=== PATIENT | male | born 1970 | race Caucasian/White ===

== ENCOUNTER 2021-07-26 05:19 | Day surgery (SDC) | payer MEDICAID ==
[2021-07-21 16:07] LABS: BASOPHILS # (AUTO) 0.1 X10'3 (0-0.2); EOSINOPHILS # (AUTO) 0.2 X10'3 (0-0.9); EOSINOPHILS % (AUTO) 2.9 % (0-6); LYMPHOCYTES # (AUTO) 2.3 X10'3 (1.1-4.8); LYMPHOCYTES % (AUTO) 32.3 % (21-51); MEAN CORPUSCULAR HEMOGLOBIN 30.1 PG (27.0-31.0); MEAN CORPUSCULAR HGB CONC 34.6 g/dL (33.0-36.5); MEAN PLATELET VOLUME 7.2 FL (7.4-10.4); MONOCYTES # (AUTO) 0.7 X10'3 (0-0.9); MONOCYTES % (AUTO) 9.8 % (2-12); NEUTROPHILS # (AUTO) 3.8 X10'3 (1.8-7.7); PRE OP HEMATOCRIT 40.9 % (42.0-52.0); PRE OP HEMOGLOBIN 14.2 g/dL (14.0-17.9); PRE OP PLATELET COUNT 376 X10'3 (140-440); RED CELL DISTRIBUTION WIDTH 12.9 % (11.5-14.5)
[2021-07-21 16:16] LABS: ALBUMIN 3.9 G/DL (3.4-5.0); ALBUMIN/GLOBULIN RATIO 1.3 (1.1-1.5); ALKALINE PHOSPHATASE 122 IU/L (46-116); BLOOD UREA NITROGEN 15 MG/DL (7-18); BUN/CREATININE RATIO 15.5 (5.4-32.0); CALCIUM 8.6 MG/DL (8.5-10.1); CHLORIDE 103 MMOL/L (99-107); CREATININE 0.97 MG/DL (0.60-1.10); PRE OP ALT 45 U/L (30-65); PRE OP ANION GAP 8 (8-16); PRE OP AST 22 U/L (10-37); PRE OP BILIRUB, TOTAL 0.3 MG/DL (0.0-1.0); PRE OP POTASSIUM 3.9 MMOL/L (3.4-5.1); PRE OP SODIUM 138 MMOL/L (135-145); TOTAL PROTEIN 6.8 G/DL (6.4-8.2); eGFR 81 ML/MIN
[2021-07-21 16:19] LABS: PRE OP GLUCOSE 186 MG/DL (70-104)
[~2021-07-26] VITALS: Ht 175.3 cm; Wt 84.7 kg
[2021-07-26] VITALS (8 sets, daily range): BP systolic 94–129; BP diastolic 59–78
[~2021-07-26 05:19] MED LIST: ATOR10TA70 PO; CLON0.3T PO; LISI1TAB53 PO; LORA10TA7 PO; METH-797 PO; METH36TA22 PO; ringers solution, lacted 1,000 ML IV SCH
[2021-07-26] MEDS ORDERED: ceFAZolin 2gm in dextrose, iso 50 ML IV ONE (05:30)
[2021-07-26] MEDS ORDERED: famotidine 20mg tablet PO ONE (05:30)
[2021-07-26] MEDS ORDERED: BUPIVAcaine/PF 2.5 mg/ml (0.25%) 30ml vial ONE (06:48)
[2021-07-26] MEDS ORDERED: LIDOcaine 1% 30ml preserv. free vial ONE (06:48)
[2021-07-26] MEDS ORDERED: fentaNYL/PF 50MCG/1 ML 2ML syringe IV PRN ×2 (07:15)
[2021-07-26] MEDS ORDERED: ondansetron/PF 4mg/2ml inj IV PRN (07:15)
[2021-07-26] MEDS ORDERED: labetalol 20mg/4ml (5mg/ml) syringe IV PRN (07:15)
[2021-07-26] MEDS ORDERED: hydrALAZINE 20mg/ml inj. IV PRN (07:15)
[2021-07-26] MEDS ORDERED: ringers solution, lacted 1,000 ML IV SCH (07:15)
[2021-07-26] MEDS ORDERED: morphine 2 MG/ML inj. syringe IV PRN (07:15)
[2021-07-26] MEDS ORDERED: morphine 4 MG/ML inj SYRINge IV PRN (07:15)
[2021-07-26] MEDS ORDERED: MIDAZolam 1mg/ml 10ml vial ONE (07:49)
[2021-07-26] MEDS ORDERED: fentaNYL/PF 50MCG/1 ML 2ML syringe ONE (07:50)
[2021-07-26] MEDS ORDERED: propofol inj 20 ML IV ONE (07:51)
[2021-07-26] MEDS ORDERED: LIDOcaine 2% (20mg/ml) 5ml vial ONE (07:51)
--- NOTE | 2021-07-26 08:31 | NUR ---
Received from OR via [facility] IN STABLE CONDITION , accompanied by Anesthesiologist and DIRECTOR EXTERNAL COMMUNICATIONS report given by DIRECTOR EXTERNAL COMMUNICATIONS AND Anesthesiolgist. Addendum: 07/26/21 at 0852 by Connie Brito RN Amended: Links added.
[2021-07-26] MEDS ORDERED: HYDROcodone/acetaminophen 5mg/325mg tablet PO PRN (08:35)
--- NOTE | 2021-07-26 09:51 | NUR ---
PATIENT DISCHARGED FROM PACU IN STABLE CONDITION AFTER WRITTEN AND VERBAL DISCHARGE INSTRUCTIONS GIVEN. PATIENT GAVE VERBAL UNDERSTANDING OF INSTRUCTIONS GIVEN. PATIENT LEFT FACILITY VIA WHEELCHAIR WITH RN. Addendum: 07/26/21 at 1040 by Connie Brito RN Amended: Links added.
== END 2021-07-26 09:51 | disposition home or self-care (01) ==
LOC: PAS 05:19
PROVIDERS: ATTEND Surgery
DX: R22.2 Localized swelling, mass and lump, trunk (principal); D17.1 Benign lipomatous neoplasm of skin and subcutaneous tissue of trunk; I10 Essential (primary) hypertension; E78.5 Hyperlipidemia, unspecified; F41.9 Anxiety disorder, unspecified; F32.9 Major depressive disorder, single episode, unspecified; F90.9 Attention-deficit hyperactivity disorder, unspecified type; Z79.899 Other long term (current) drug therapy; Z98.890 Other specified postprocedural states; Z87.891 Personal history of nicotine dependence; Z20.822 Contact with and (suspected) exposure to COVID-19
CPT/HCPCS: 21554; 36415; 80053; 82948; 85025; 93005; 93306; J2001; J2250; J2704; J3010; J3490; U0003; U0005; Z7506; Z7512; A4215; A4618; A7000; J7120

== ENCOUNTER 2025-05-10 20:30 | Inpatient (IN) | payer MEDICAID ==
[~2025-05-10] VITALS: Ht 175.3 cm; Wt 80.0 kg
[~2025-05-10 20:30] MED LIST changes: +METH36TA14 PO; -METH36TA22 PO; -ringers solution, lacted 1,000 ML IV SCH
--- NOTE | 2025-05-10 20:40 | ELECTROCARDIOGRAPH REPORT ---
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 Amando Alegria Measurements Intervals [place] Rate: 81 P: 69 DE: 176 QRS: 52 QRSD: 126 T: -85 QT: 410 QTc: 476 Interpretive Statements Sinus rhythm Probable left atrial enlargement Left bundle branch block Baseline wander in lead(s) I,II,aVR Electronically Signed On 05-13-2025 3:07:[address] Amando Alegria Please click the below link to view image of tracing.
[2025-05-10 20:56] LABS: MEAN PLATELET VOLUME 7.0 FL (7.4-10.4); RED CELL DISTRIBUTION WIDTH 13.2 % (11.5-14.5)
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
[2025-05-10 21:08] LABS: APTT 25 SECONDS (22-32); INR 1.1 INR
[2025-05-10 21:16] LABS: CREATININE 1.37 MG/DL (0.60-1.10); TOTAL CARBON DIOXIDE 22.3 MMOL/L (24-32); eCRCL 61 ML/MIN; eGFR 54 ML/MIN
[2025-05-10 21:20] LABS: PHOSPHORUS 3.7 MG/DL (2.3-4.5); PRO BRAIN NATRIURETIC PEPTIDE 413 PG/ML (0-125)
--- NOTE | 2025-05-10 22:08 | RADIOLOGY REPORT ---
CT CT HEAD INDICATION: aloc COMPARISON: None TECHNIQUE: CT of the head without intravenous contrast. RADIATION DOSE: CTDIvol: mGy, DLP: mGy*cm FINDINGS: No evidence of intracranial hemorrhage, infarct, extra-axial collection, mass effect, midline shift or herniation. Ventricles, sulci and cisterns are normal with no hydrocephalus. Visualized paranasal sinuses, mastoid air cells and middle ear cavities are clear. Orbits appear unre markable. Soft tissues and osseous structures are unremarkable. IMPRESSION: No intracranial abnormality identified.
[2025-05-10] MEDS ORDERED: iohexol 300mg/ml 100ml inj. ONE (22:09)
[2025-05-10 22:14] LABS: LEUKOCYTE ESTERASE ,URINE TRACE (Neg); NITRITES, URINE NEGATIVE (Neg); OCCULT BLOOD,URINE LARGE (Neg)
[2025-05-10 22:15] LABS: UA COLLECTION TYPE FOLEY CATH
[2025-05-10 22:26] LABS: SQUAMOUS EPITHELIAL CELL,UR FEW /LPF (FEW)
[2025-05-10] MEDS: magnesium sulf-water 2g/50mL 50 ML IV ONE (22:54)
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
[2025-05-10] MEDS: CefTRIAXone 2gm/D5W 50ml BAG 50 ML IV ONE (23:40)
[2025-05-11] VITALS (8 sets, daily range): BP systolic 144–180; BP diastolic 76–89; PULSE 83–121; RESP 18–30; TEMP 97.2–100.5; O2SAT 94–100
[2025-05-11] MEDS: vancomycin/NS 1 GM ADD-VANTAGE 250 ML IV ONE (00:11)
[2025-05-11] MEDS ORDERED: ondansetron/PF 4mg/2ml inj IV PRN (01:35)
[2025-05-11] MEDS ORDERED: magnesium Cl slow-release 64mg tablet PO PRN (01:35)
[2025-05-11] MEDS ORDERED: magnesium sulf-water 2g/50mL 50 ML IV PRN (01:35)
[2025-05-11] MEDS ORDERED: magnesium sulf-water 4G/100mL 100 ML IV PRN (01:35)
[2025-05-11] MEDS ORDERED: potassium Cl 20 mEq SR tablet PO PRN ×2 (01:35)
[2025-05-11] MEDS ORDERED: mag hydrox/Alum hydrox/simeth 30ml oral suspension PO PRN (01:35)
[2025-05-11] MEDS ORDERED: haloperidol lactate 5mg/ml inj IM PRN (01:35)
[2025-05-11] MEDS: haloperidol lactate 5mg/ml inj ONE (01:51)
--- NOTE | 2025-05-11 02:13 | HISTORY AND PHYSICAL-Residence ---
History & Physical Providers to CC Resident Creating Document: RUSSELL JAMES, RES ~ History of Present Illness Reason for Admit\Complaint: Rhabdomyolysis, ETOH abuse History of Present Illness 54-year-old male is transferred from [facility] for evaluation and further management of severe alcohol abuse and rhabdomyolysis. The patient is altered, confused and significantly agitated waking up to deep stimulation and is not able to provide history. The patient's friends (Rei Jayshree) are at the bedside and provided most of the patient's history. Per the patient's friends the patient was found unresponsive in his room early in the morning when they went to check on him. They reported that the patient was drinking very very heavily and cause on binge drinking episodes since the last 5-6 days and are not sure what triggered this binge drinking episode. They reported that the last saw the friend talking and being himself was the night prior to which he was found unresponsive and reported that he was intoxicated but was able to recognize his friends. Per the friend's the patient does not drink alcohol every day but has a episodes where he binge drinks and had to be taken to the hospital in the past. They also report that he has a history of drinking isopropyl alcohol in the past and are not sure if he also consumed isopropyl alcohol during this binge drinking episode. The patient was initially taken to [facility] where he was found to [place] [address], hyponatremia with a sodium of 120 and significantly elevated LFTs. He was treated with aggressive fluid hydration and was transferred to our hospital for further care and management in view of is severe rhabdomyolysis and severe alcohol withdrawals. PCP- Dr. Joya Allergies: Coded Allergies: No Known Allergies (Unverified , 07/21/21) Home Medications Home Medications Active Reported Loratadine 10 Mg Tablet 1 Tab PO DAILY Atorvastatin Calcium 10 Mg Tablet 1 Tab PO DAILY Methylphenidate Hcl 36 Mg Tab.er.24 1 Tab PO QAM Clonidine HCl 0.3 Mg Tablet 1 Tab PO HS Lisinopril-Hctz 20-25 mg Tab (Lisinopril/Hydrochlorothiazide) 1 Each Tablet 1 Tab PO DAILY Methocarbamol 500 Mg Tablet 1 Tab PO TID PRN Past Medical History Past Medical History Hypotension, hyperlipidemia, multiple episodes of binge alcohol drinking alcohol abuse. Friends deny history of alcohol withdrawals or daily alcohol use. Past Surgical History Surgical History Comment Right shoulder surgery reported Past Social History Social History Comment Lives at shared living facility along with his friends. 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 Shilpa naranjo [phone] Friends deny history of smoking or recreational drug use History of multiple alcohol binge drinking episodes ROS ROS Not able to complete a review of system Exam Vitals: Vital Signs Date Time Temp Pulse Resp B/P (MAP) Pulse Ox O2 Delivery O2 Flow Rate FiO2 05/10/25 23:51 17 05/10/25 23:26 99.2 90 97 2.0 General: General: Agitated, confused and altered . Waking up to command. HEENT: PERRLA, no icterus Neck: No swelling or lymphadenopathy Chest/respiratory: There is a abrasion noted with a chest Bilateral clear airways CVS: S1-S2 heard no murmurs or rubs. Abdomen: Soft nontender , bowel sounds present Extremities: Multiple hematomas, patient's noted throughout the four extremities. Skin: Warm and dry Neurology: Confused, agitated and combative would also falls back asleep soon. Diagnostic Data Last Recorded Lab Results: 05/10/25204605/10/252046 Diagnostic Data: Laboratory Tests Test 05/10/25 20:47 Prothrombin Time 11.1 SECONDS (9.0-12.0) INR International Normalized Ratio 1.1 INR Activated Partial Thromboplast Time 25 SECONDS (22-32) Coagulation Comments Additional Plan Binge alcohol abuse Alcoholic hepatitis Metabolic encephalopathy Delirium tremens Rhabdomyolysis Patient is transferred from [facility] in view of severe alcohol abuse, alcohol withdrawal and rhabdomyolysis. The patient received aggressive IV fluid resuscitation at [facility] prior to his transfer. The [place]ing [place] is currently [id number]. Held IV NaCl in view of the patient's rapidly corrected sodium level. It has a 120 at the time of admission at [place] and it is 131 right now. Plan to restart fluid resuscitation once the sodium stabilizes. Continue to monitor the patient's CPK. Patient received one dose of IV phenobarbital in the ER in view of severe alcohol withdrawal. Started the patient on IV Ativan as needed for severe agitation/anxiety based on CIWA protocol. Started the patient on IV thiamine and folic acid supplementation. Continue supportive care. The patient had to be put in restraints in view of his severe agitation. Aspiration precautions Substance abuse navigator and social media project manager consultation. There is also suspicion the patient might have taken isopropyl alcohol as he has a history of drinking acetaminophen alcohol in the past reported by his parents. We will consult poison control. Telemetry monitoring. CT scan of the abdomen chest and pelvis show no intra-abdominal or acute intrathoracic injury at this time. CT scan of the head showed no acute intracranial abnormalities. Sepsis, POA UTI Urine analysis positive for leukocyte esterase, 5-10 WBCs, bacteria. Started the patient on IV ceftriaxone 1 g daily Follow up with procalcitonin Follow up with the urine culture and blood cultures and change the antibiotic accordingly. Hyponatremia The patient's initial sodium level was 120 at the time of presentation to [facility]. He received aggressive IV fluid resuscitation. The sodium level has a raised to 131 currently. IV fluids are currently on hold. We will give him one dose of subcu desmopressin. Continue to monitor the patient's electrolytes closely. CODE STATUS: Full code DVT prophylaxis: SCDs GI prophylaxis: IV Protonix Diet: NPO Disposition: Continue medical management. Prognosis guarded. Follow up with the substance abuse navigator consultation and social media project manager consultation. Requires close monitoring for the next 24-48 hours. Russell James MD Internal Medicine Resident, PGY-3 Patient evaluated using HIPPA compliant AV device Agree with plan as discussed with the resident Cj Michaels MD Date of Service: May 11, 2025 Billing Provider: CJ MICHAELS MD, SURYA PRATIK, GAB May 11, 2025 02:13 CJ MICHAELS MD May 11, 2025 04:18
[2025-05-11] MEDS: DESMOPRESSIN ONE (03:58)
[2025-05-11 07:52] LABS: MEAN PLATELET VOLUME 7.2 FL (7.4-10.4); RED CELL DISTRIBUTION WIDTH 13.4 % (11.5-14.5)
[2025-05-11 07:59] LABS: CREATININE 1.29 MG/DL (0.60-1.10); TOTAL CARBON DIOXIDE 19.3 MMOL/L (24-32); eCRCL 65 ML/MIN; eGFR 58 ML/MIN
[2025-05-11] MEDS: K and/or MAG REPLACEMENT MC SCH (08:00)
[2025-05-11] MEDS: multivitamins, therapeutics tablet PO SCH (08:00)
[2025-05-11] MEDS: docusate sod 100mg capsule PO SCH (08:00)
[2025-05-11] MEDS: thiamine 100mg/ml 2ml inj. IV SCH (08:47)
[2025-05-11] MEDS: folic acid 1mg/0.2ml inj IV SCH (08:48)
[2025-05-11] MEDS: CefTRIAXone/D5W-Rocephin 1gm 50 ML IV SCH (08:48)
[2025-05-11 12:40] LABS: CREATININE 1.04 MG/DL (0.60-1.10); TOTAL CARBON DIOXIDE 19.9 MMOL/L (24-32); eCRCL 80 ML/MIN; eGFR 74 ML/MIN
[2025-05-11] MEDS: haloperidol lactate 5mg/ml inj IM PRN (13:07)
[2025-05-11] MEDS: ziprasidone IM 20mg inj **IM only IM ONE (13:59)
--- NOTE | 2025-05-11 16:37 | PROGRESS NOTE- Residence ---
Progress Note - Resident Providers to CC Resident Creating Document: RG FLOWERS RES ~ Antibiotic Timeout Antibiotic Ordered?: Yes Subjective The patient was assessed and examined at the bedside, showing drowsiness. Friends present at the bedside reported that he has been drinking heavily for the last few days. He was discovered unconscious amid several whiskey bottles. The patient has numerous bruises, lacerations and various injuries across his body; however his friends were unaware of how these injuries occurred. Objective Vital Signs Date Time Temp Pulse Resp B/P (MAP) Pulse Ox O2 Delivery O2 Flow Rate FiO2 05/11/25 11:52 99.1 90 22 180/86 (117) 94 Room Air 05/11/25 07:21 2.0 Result Diagram: 05/11/2528 05/11/25 1218 Drowsy, agitative and combative, in apparent distress HEENT: Atraumatic, normocephalic, EOMI, anicteric sclera ; pink conjunctiva Neck: Trachea midline. Supple, full range of motion, no JVD Cardiac: Regular rhythm, regular rate with no murmurs all over the precordium. Respiratory: Diminished breath sounds bilaterally, tachypnea, no wheezing ,rub or rales, Chest wall is symmetric and with multiple do a. Gastrointestinal: Abdomen symmetric, non-distended, soft, normal bowel sounds x4 quadrant, normoactive, no hepatosplenomegaly Musculoskeletal: Left lower extremity: A laceration of the brace of the left greater toe with extension into the wound underneath Several bruit all over the body with significant discoloration Neurological: Could not be performed Skin: Warm and dry Coagulation Studies Laboratory Tests Test 05/10/25 20:47 Prothrombin Time 11.1 SECONDS (9.0-12.0) INR International Normalized Ratio 1.1 INR Activated Partial Thromboplast Time 25 SECONDS (22-32) Coagulation Comments Advance Care Planning Advanced Care plannin - 30 Minutes Plan Plan 1) Severe Alcohol Withdrawal high risk for delirium tremens / seizures Binge alcohol use Altered, severely agitated; already given phenobarbital and PRN lorazepam. Restraints and sitter in place. Plan: Head CT No intracranial abnormality identified. Continue CIWA monitoring q12h and prn; restraints per policy. Continue symptom triggered benzodiazepine strategy (lorazepam 2 mg IV q2h PRN per CIWA). Continue haloperidol 5 mg q.2h; Geodon on 10 mg q.6 H; monitor QTC prolongation Phenobarbital: ER dose given We will consult ICU for probable need of intubation if progressively somnolent, loss of airway reflexes, or respiratory depression from sedatives Thiamine 100 mg IV STAT then 100 mg IV daily x 3. Folic acid 1 mg IV daily Follow up with the echocardiogram 2) Rhabdomyolysis (CPK 23,704 and downtrending) Severe rhabdo from prolonged intoxication/immobility; CPK improving but still very high. Risk for SUSIE, electrolyte derangements. Plan Resume isotonic IV fluids (0.9% NS) once sodium is stable Check CK q12h until falling and <5,000 Check urine output hourly; mona for accurate UOP Monitor for hyperkalemia, hypocalcemia, hyperphosphatemia Currently there is no need for urine alkalinization (bicarb) as his SUSIE is resolving 3) Hyponatremia concern for overly rapid correction Na 120 on presentation; after aggressive fluids it aniya to ~131 (fluctuations reported). Repeat sodium levels 134 Plan: Place all IV hypotonic / isotonic fluids on HOLD for now Check serum sodium q4h until stable Patient received a dose of desmopressin 1 mcg SC Initiated free water (D5W) infusion Frequent neuro checks q1h while sodium is being actively managed 4) Possible toxic alcohol / isopropyl alcohol ingestion Friends report prior history of drinking isopropyl/alcohol swabs Plan Poison Control was consulted; recommended monitoring for now Serum ethanol levels, UA toxicology, ethylene glycol levels ordered 5) Possible UTI / sepsis POA UA positive; patient empirically started on ceftriaxone 1 g IV daily. Vitals and cultures pending Plan: Blood cultures x2 and urine culture; pending Initiated cefazolin 1 g q.8h Procalcitonin: 11.24; lactic acid within normal limits Probable source of infection: Open wounds of the left great toe/ UTI 6) Left great toe deep laceration Deep laceration noted on exam; Concern for contamination and possible osteomyelitis if chronic. Plan Podiatry consulted STAT for exam, bedside irrigation/debridement vs OR washout. Foot x-ray ordered to rule out bony involvement Tetanus status; tetanus booster if indicated after patient is stable Continue current antibiotic cefazolin, we will adjust antibiotics based on cultures tomorrow 7) Alcoholic hepatitis / hepatic dysfunction Elevated LFTs reported; alcoholic hepatitis possible Plan LFTs on admission: AST: 1416 trended down to 928; ALT: [address] scan showed: No evidence of acute intrathoracic or intra- abdominal/pelvic injury Avoid hepatotoxic meds; adjust doses as needed 8. Acute kidney injury, prerenal (vasomotor nephropathy): Resolved DVT prophylaxis: SCDs in place now GI prophylaxis: pantoprazole 40 mg IV daily Sitter/restraints: continue sitter NPO/aspiration precautions until swallow evaluation if oral intake considered. Continue telemetry & frequent neuro checks. Rg Flowers MD Internal Medicine Resident, PGY-2 Date of Service: May 11, 2025 Billing Provider: TEMO MACARIO MD,RG, RES May 11, 2025 16:37
[2025-05-11] MEDS: PERFLUTREN PROTEIN-A MICROSPHR (Optison) 0.22 MG/ML 3ML VIAL IV ONE (16:55)
[2025-05-11 17:29] LABS: URINE AMPHETAMINE SCREEN NEGATIVE (Neg); URINE BARBITUATE SCREEN POSITIVE (Neg); URINE BENZODIAZEPINES SCREEN NEGATIVE (Neg); URINE CANNABINOID SCREEN POSITIVE (Neg); URINE COCAINE SCREEN NEGATIVE (Neg); URINE METHADONE SCREEN NEGATIVE (Neg); URINE OPIATE SCREEN POSITIVE (Neg); URINE PHENCYCLIDINE SCREEN NEGATIVE (Neg)
[2025-05-11 18:36] LABS: CREATININE 1.05 MG/DL (0.60-1.10); TOTAL CARBON DIOXIDE 22.9 MMOL/L (24-32); eCRCL 79 ML/MIN; eGFR 73 ML/MIN
[2025-05-11 18:44] LABS: ETHANOL < 10 MG/DL (<10)
[2025-05-11] MEDS: ceFAZolin/D5W- 1GM premix 50 ML IV SCH (20:15)
--- NOTE | 2025-05-12 00:47 | RADIOLOGY REPORT ---
CLINICAL INDICATION: Left greater toe injury TECHNIQUE: DI FOOT,LIMITED (AP/LAT) Comparison: None FINDINGS/IMPRESSION: : There is no evidence of acute fracture or dislocation. Probable Chronic sequelae of remote trauma inferiorly adjacent to the medial malleolus. Degenerative change of the 5th distal interphalangeal joint. Moderate diffuse soft tissue swelling of the 1st digit.
[2025-05-12 02:00] VITALS: BP 152/87; PULSE 103; RESP 20; TEMP 99.3; O2SAT 96
[2025-05-12 06:00] VITALS: BP 145/94; PULSE 117; RESP 20; TEMP 99.5; O2SAT 94
--- NOTE | 2025-05-12 06:23 | CONSULTATION REPORT ---
Consult Providers to CC Left hallux laceration History of Present Illness Reason for Admit\Complaint: Alcohol overdose History of Present Illness Rei Snow is a 54yo Male admitted for alcohol overdose after being found down in his home by friends surrounded by whiskey bottles. He is currently sedated in restraints in bed so no subjective was obtained. His RN yesterday was doing a skin check and found a laceration on his plantar left hallux that extended to bone, so I was consulted for eval. Allergies: Coded Allergies: No Known Allergies (Unverified , 07/21/21) Home Medications Home Medications Active Reported Loratadine 10 Mg Tablet 1 Tab PO DAILY Atorvastatin Calcium 10 Mg Tablet 1 Tab PO DAILY Methylphenidate Hcl 36 Mg Tab.er.24 1 Tab PO QAM Clonidine HCl 0.3 Mg Tablet 1 Tab PO HS Lisinopril-Hctz 20-25 mg Tab (Lisinopril/Hydrochlorothiazide) 1 Each Tablet 1 Tab PO DAILY Methocarbamol 500 Mg Tablet 1 Tab PO TID PRN Exam Vitals: Vital Signs Date Time Temp Pulse Resp B/P (MAP) Pulse Ox O2 Delivery O2 Flow Rate FiO2 05/12/25 02:00 99.3 103 20 152/87 (108) 96 Nasal Cannula 2.0 Extremities: Focused LLE exam: Vasc: DP/PT pulses palpable. Cap refill WNL. No varicosities. Derm: Full thickness laceration plantar left hallux base transversely that extends to bone, no palpable FHL tendon with probe, there is surrounding erythema, edema and warmth to the hallux Neuro: Unable to fully examine do to sedated state, did not respond to superficial stimuli but responded to deep stimuli Msk: no gross deformity to left hallux, appeared to have pain with deep probing of wound Diagnostic Data Last Recorded Lab Results: 05/11/25 0728 05/11/25 5118 Diagnostic Data: Laboratory Tests Test 05/10/25 20:47 Prothrombin Time 11.1 SECONDS (9.0-12.0) INR International Normalized Ratio 1.1 INR Activated Partial Thromboplast Time 25 SECONDS (22-32) Coagulation Comments Additional Plan Left hallux laceration, extending to bone with surrounding cellulitis -Given we do not know timeline of injury, given the laceration extends to bone with surrounding cellulitis, recommend operative intervention: Left hallux irrigation and debridement with possible closure, possible bone biopsy, possible FHL repair, possible staged procedure -Recommend stat MRI of left foot with/wo contrast to eval for any early osteomyelitis and possible FHL rupture -No fracture seen on xray -Continue NPO -Continue dressing with betadine wet to dry, makayla, tape -Will work on surgery scheduling -Please reach out with any questions or concerns Ale Villatoro DPM ALE VILLATORO DPM May 12, 2025 06:23
[2025-05-12 07:07] LABS: MEAN PLATELET VOLUME 7.5 FL (7.4-10.4); RED CELL DISTRIBUTION WIDTH 12.9 % (11.5-14.5)
[2025-05-12 07:21] LABS: INR 1.0 INR
[2025-05-12 07:35] LABS: CREATININE 0.97 MG/DL (0.60-1.10); TOTAL CARBON DIOXIDE 22.7 MMOL/L (24-32); eCRCL 86 ML/MIN; eGFR 80 ML/MIN
[2025-05-12 07:38] LABS: PHOSPHORUS 1.6 MG/DL (2.3-4.5)
[2025-05-12 09:00] VITALS: RESP 20; O2SAT 94
[2025-05-12] MEDS: ziprasidone IM 20mg inj **IM only IM PRN (10:56)
[2025-05-12 11:00] VITALS: BP 166/83; PULSE 103; RESP 21; TEMP 97.5; O2SAT 96
[2025-05-12 12:20] LABS: CREATININE 0.91 MG/DL (0.60-1.10); TOTAL CARBON DIOXIDE 21.8 MMOL/L (24-32); eCRCL 92 ML/MIN; eGFR 86 ML/MIN
[2025-05-12] MEDS: potassium Cl 40MEQ/1/2NS 520ml 520 ML IV PRN (14:04)
[2025-05-12 18:00] VITALS: BP 189/110; PULSE 105; RESP 19; TEMP 99.1; O2SAT 96
[2025-05-12] MEDS: PERFLUTREN PROTEIN-A MICROSPHR (Optison) 0.22 MG/ML 3ML VIAL IV ONE (18:35)
--- NOTE | 2025-05-12 19:08 | PROGRESS NOTE- Residence ---
Progress Note - Resident Providers to CC Resident Creating Document: RG FLOWERS RES ~ Antibiotic Timeout Antibiotic Ordered?: Yes Subjective The patient was assessed and examined at the bedside, showing drowsiness. He has been combative until 3:00 a.m. yesterday. However, he has been drowsy and calm all through today Objective Vital Signs Date Time Temp Pulse Resp B/P (MAP) Pulse Ox O2 Delivery O2 Flow Rate FiO2 05/12/25 13:51 26 05/12/25 11:00 97.5 103 166/83 (110) 96 Room Air 05/12/25 09:00 2.0 Result Diagram: 05/12/25 0631 05/12/25 1159 Drowsy, agitative and combative, in apparent distress HEENT: Atraumatic, normocephalic, EOMI, anicteric sclera ; pink conjunctiva Neck: Trachea midline. Supple, full range of motion, no JVD Cardiac: Regular rhythm, regular rate with no murmurs all over the precordium. Respiratory: Diminished breath sounds bilaterally, tachypnea, no wheezing ,rub or rales, Chest wall is symmetric and with multiple do a. Gastrointestinal: Abdomen symmetric, non-distended, soft, normal bowel sounds x4 quadrant, normoactive, no hepatosplenomegaly Musculoskeletal: Left lower extremity: Dressing in place Several bruit all over the body with significant discoloration Neurological: Could not be performed Skin: Warm and dry Coagulation Studies Laboratory Tests Test 05/10/25 20:47 05/12/25 06:31 Activated Partial Thromboplast Time 25 SECONDS (22-32) Prothrombin Time 10.1 SECONDS (9.0-12.0) INR International Normalized Ratio 1.0 INR Coagulation Comments Advance Care Planning Advanced Care plannin - 30 Minutes Plan Plan 1) Severe Alcohol Withdrawal high risk for delirium tremens / seizures Binge alcohol use Altered, severely agitated; already given phenobarbital and PRN lorazepam. Restraints and sitter in place. Plan: Head CT No intracranial abnormality identified. Continue CIWA monitoring q12h and prn; restraints per policy. Continue symptom triggered benzodiazepine strategy (lorazepam 2 mg IV q2h PRN per CIWA). Continue haloperidol 5 mg q.2h; Geodon on 10 mg q.6 H; monitor QTC prolongation Phenobarbital: ER dose given We will consult ICU for probable need of intubation if progressively somnolent, loss of airway reflexes, or respiratory depression from sedatives Thiamine 100 mg IV STAT then 100 mg IV daily x 3. Folic acid 1 mg IV daily Follow up with the echocardiogram 05/12/2025: Patient had a sudden rise in liver enzymes, hence held haloperidol 5 mg q.2h Recommended to continue Geodon 10 mg q.6 H; patient was combative and agitated until 3:00 a.m this day. He has been calm all through today, hence recommended to continue Geodon q.6 H and Ativan 2 mg IV p.r.n. We will consider consulting Dr. Thompson, customs house broker if there is any further decline or increased combativeness over time There are high chances he might end up requiring intubation/ phenobarbital along with transferred to ICU Follow up with the echocardiogram, pending Continue thiamine, folic acid as above 2) Rhabdomyolysis (CPK 23,704 on admission and downtrending) Severe rhabdo from prolonged intoxication/immobility; CPK improving but still very high. Risk for SUSIE, electrolyte derangements. Plan Resume isotonic IV fluids (0.9% NS) once sodium is stable Check CK q12h until falling and <5,000 Check urine output hourly; mona for accurate UOP Monitor for hyperkalemia, hypocalcemia, hyperphosphatemia Currently there is no need for urine alkalinization (bicarb) as his SUSIE is resolving 05/12/2025[place] [address] today, recently repeat CPK tomorrow in a.m. Electrolyte levels: Stable Initiated D5 half NS at 150 cc/hour today 3) Hyponatremia concern for overly rapid correction Na 120 on presentation; after aggressive fluids it aniya to ~131 (fluctuations reported). Repeat sodium levels 134 Plan: Place all IV hypotonic / isotonic fluids on HOLD for now Check serum sodium q4h until stable Patient received a dose of desmopressin 1 mcg SC Initiated free water (D5W) infusion Frequent neuro checks q1h while sodium is being actively managed 05/12/2025: Sodium levels: 134, 135, 135, 136 since yesterday Unable to assess mentation currently, as patient is receiving hypnotics Initiated D5 half NS had 150 cc/hour Frequent neuro checks q.1h if possible 4) Possible toxic alcohol / isopropyl alcohol ingestion Friends report prior history of drinking isopropyl/alcohol swabs Plan Poison Control was consulted; recommended monitoring for now Serum ethanol levels, UA toxicology, ethylene glycol levels ordered 05/12/2025: Serum ethanol levels: Less than 10 UA toxicology: Positive for opiates, cannabinoids, barbiturates Pending ethanol glycol level 5) Possible UTI / sepsis POA UA positive; patient empirically started on ceftriaxone 1 g IV daily. Vitals and cultures pending Plan: Blood cultures x2 and urine culture; pending Initiated cefazolin 1 g q.8h Procalcitonin: 11.24; lactic acid within normal limits Probable source of infection: Open wounds of the left great toe/ UTI 05/12/2025: WBC count trended down to 11.2 from 17.4 and 14.6 Blood cultures and urine cultures negative until today Initiated ceftriaxone 1 g IV daily today Repeat procalcitonin ordered 6) Laceration of the left hallux extending to the bone, accompanied by surrounding cellulitis Deep laceration noted on exam; Concern for contamination and possible osteomyelitis if chronic. Plan Podiatry consulted STAT for exam, bedside irrigation/debridement vs OR washout. Foot x-ray ordered to rule out bony involvement Tetanus status; tetanus booster if indicated after patient is stable Continue current antibiotic cefazolin, we will adjust antibiotics based on cultures tomorrow 05/12/2025: The administrative medical director has recommended an immediate MRI of the left foot, with or without contrast, to evaluate for any signs of early osteomyelitis and a potential rupture of the flexor hallucis longus (FHL). The X-ray of the left foot revealed: no indications of an acute fracture or dislocation. There are likely chronic sequelae from a previous trauma located inferiorly adjacent to the medial malleolus. Additionally, degenerative changes were noted in the fifth distal interphalangeal joint, along with moderate diffuse soft tissue swelling of the first digit. A laceration of the left hallux extends to the bone, accompanied by surrounding cellulitis. Due to the lack of precise historical information regarding the injury timeline and the presence of a laceration extending to the bone with surrounding cellulitis, the patient is expected to benefit from surgical intervention. This may include irrigation and debridement of the left hallux, with potential closure, a possible bone biopsy, a possible repair of the FHL, and the possibility of a staged procedure. The patient is to remain NPO after midnight. However, the patient was unable to undergo the MRI as he is currently restrained and is not a suitable candidate at this time. A discussion was held regarding the decision to not proceed with the MRI scan, and the administrative medical director has recommended moving forward with surgery tomorrow morning without the MRI for the time being. Due to unknown acute 8 history, timeline and extension to the underlying bone; initiated empiric antibiotics for now; transitioned cefazolin to ceftriaxone 1 g IV daily and vancomycin pharmacy to dose for now We shall deescalate antibiotics based on procedure tomorrow 7) Alcoholic hepatitis / hepatic dysfunction Transaminemia Elevated LFTs reported; alcoholic hepatitis possible Plan LFTs on admission: AST: 1416 trended down to 928; ALT: [address] scan showed: No evidence of acute intrathoracic or intra- abdominal/pelvic injury Avoid hepatotoxic meds; adjust doses as needed 05/12/2025: Sudden rise in LFTs: AST 2464, ALT 1054 Possible acute causes include: Extensive use of haloperidol over the past 24 hours; hence held haloperidol for now Awaiting hepatitis panel Patient had no evidence of any hypotensive episodes over the past 24 hours,hence likely not ischemic hepatopathy/ hepatitis Initiated maintenance fluids: D5 half NS at 150 cc/hour today Repeat ammonia levels ordered Ultrasound abdomen ordered 8. Acute kidney injury, prerenal (vasomotor nephropathy): Resolved 9. Hypokalemia: Potassium levels 3.3 today, continue monitoring CMP, replacement per protocol DVT prophylaxis: SCDs in place now GI prophylaxis: pantoprazole 40 mg IV daily Sitter/restraints: continue sitter NPO/aspiration precautions until swallow evaluation if oral intake considered. Continue telemetry & frequent neuro checks. Rg Flowers MD Internal Medicine Resident, PGY-2 Date of Service: May 12, 2025 Billing Provider: TEMO MACARIO MD Common Visit Codes: [id number] INP/OBS CARE(HIGH) RG FLOWERS, RES May 12, 2025 19:08 TEMO MACARIO MD May 13, 2025 06:50
[2025-05-12] MEDS: VANCOmycin 1250MG/NS 250ml Bag 250 ML IV SCH (20:00)
--- NOTE | 2025-05-12 20:18 | RADIOLOGY REPORT ---
CLINICAL HISTORY: Rise of liver enzymes TECHNIQUE: Transabdominal sonogram was performed of the right upper quadrant. COMPARISON: None FINDINGS: The liver is increased in echogenicity. There is no focal parenchymal abnormality. No intrahepatic b iliary ductal dilatation is present. The liver measures 16.1 cm. The gallbladder is normal with no evidence for stones or wall thickening. The common bile duct is normal in caliber, measuring 5 mm. The pancreas is not well seen. The right kidney is normal in echogenicity and measures 12.6 cm in length. There is a 2.1 cm cyst. Th ere is no evidence for hydronephrosis or calculi. IMPRESSION: Diffuse hepatic steatosis.
[2025-05-12] MEDS: CefTRIAXone/D5W-Rocephin 1gm 50 ML IV SCH (21:15)
[2025-05-12 21:44] LABS: CREATININE 0.99 MG/DL (0.60-1.10); TOTAL CARBON DIOXIDE 23.5 MMOL/L (24-32); eCRCL 84 ML/MIN; eGFR 78 ML/MIN
[2025-05-12 22:00] VITALS: BP 159/93; PULSE 105; RESP 29; TEMP 99.7; O2SAT 96
[2025-05-13] VITALS (14 sets, daily range): BP systolic 135–199; BP diastolic 71–118; PULSE 71–109; RESP 14–35; TEMP 97.5–99.8; O2SAT 92–100
[2025-05-13 06:27] LABS: MEAN PLATELET VOLUME 7.4 FL (7.4-10.4); RED CELL DISTRIBUTION WIDTH 13.0 % (11.5-14.5)
[2025-05-13 06:40] LABS: INR 1.0 INR
[2025-05-13 07:22] LABS: CREATININE 0.81 MG/DL (0.60-1.10); PHOSPHORUS 1.5 MG/DL (2.3-4.5); TOTAL CARBON DIOXIDE 22.3 MMOL/L (24-32); eCRCL 103 ML/MIN; eGFR > 90 ML/MIN
[2025-05-13 09:19] LABS: HBSAG SCREEN Negative (Negative); HEP A AB, IGM Negative (Negative); HEPATITIS C VIRUS ANTIBODY Non Reactive (Non Reactive)
[2025-05-13] MEDS: diazepam inj 5 MG/ML inj. IV PRN ×2 (12:26→20:22)
[2025-05-13] MEDS: hydrALAZINE 20mg/ml inj. IV PRN ×2 (12:28→17:45)
[2025-05-13] MEDS ORDERED: bacitracin 15gm ointment TP ONE (14:50)
[2025-05-13] MEDS ORDERED: vancomycin 1,000mg inj ONE (14:50)
[2025-05-13] MEDS ORDERED: LIDOcaine 1% (10mg/ml)w/preservative inj. 20ml MDV ONE (15:09)
[2025-05-13] MEDS ORDERED: BUPIVAcaine/PF 2.5mg/ml (0.25%) 10ml vial ONE (15:09)
[2025-05-13] MEDS ORDERED: fentaNYL/PF 50MCG/1 ML 2ML syringe ONE (16:05)
[2025-05-13] MEDS ORDERED: midazolam 1 mg/ML 2ml injection ONE (16:06)
[2025-05-13] MEDS ORDERED: propofol inj 0 ML IV ONE (16:29)
[2025-05-13] MEDS ORDERED: propofol inj 20 ML IV ONE (16:29)
[2025-05-13] MEDS ORDERED: HYDROmorphone/PF 0.2 MG/ML SYRINGE IV PRN ×2 (17:00)
[2025-05-13] MEDS ORDERED: ondansetron/PF 4mg/2ml inj IV PRN (17:00)
[2025-05-13] MEDS ORDERED: ringers solution, lacted 1,000 ML IV SCH (17:00)
--- NOTE | 2025-05-13 17:14 | OPERATIVE REPORT ---
Operative Report Providers to ~ Date of Procedure: May 13, 2025 Pre-Operative Diagnosis: Laceration plantar left hallux, left foot cellulitis Post-Operative Diagnosis SAME as PRE-Op Procedure Performed Left plantar hallux laceration irrigation and debridement, debridement of FHL tendon, bone biopsy, laceration repair Surgeon: Trell Villatoro DPM Gas Welder Apprentice n/a Anesthesiologist: Selvin Walker Type of Anesthesia: General Findings: No abscess or purulence. Partial laceration of the FHL tendon, frayed. Firm bone quality, white in coloration. No arterial bleeds noted. Healthy tissue with adequate bloodflow post-debridement. Complications none Prosthetics\\Implants used: none Estimated Blood Loss: 20cc Specimen Removed: 1) Left hallux soft tissue for A&A and gram stain 2) Left hallux bone biopsy for pathology Description of Procedure: Consent was obtained by the patient's mother due to his sedated state. Under mild sedation the patient was brought into the operating room and left on the hospital bed in the supine position. The anesthesia provider then induced general anesthesia with LMA. A well padded left ankle tourniquet was applied but not inflated during the case. The left lower extremity was then scrubbed, prepped and draped in the usual aseptic manner. A timeout was performed confirming the correct patient, procedure and laterality. A local block of 20cc 0.25% marcaine plain was injected to the left first ray. Attention was then directed to the plantar left hallux where a full thickness transverse laceration was noted and extended to the proximal phalanx. All non- viable tissue was debrided with a rongeur. Swab cultures of the left hallux were taken to be sent for A&A and gram stain. The FHL tendon was evaluated and noted to be partial torn with fraying to the torn aspect. This was non-repairable and debrided with a #15 blade. The remaining tendon appeared healthy and viable and was left intact. A rongeur was used to take a sample of the proximal phalanx to rule out osteomyelitis given the extended length of time the laceration was there prior to repair given the patient's medical state. This was passed to the back table to be sent to pathology. The wound was irrigated with 3L normal saline with 1gm vancomycin using cysto tubing. Gloves were changed and only clean instruments were used moving forward. The skin edges were freshened for closure using a #15 blade. Any small bleeders were cauterized with electrocautery. The incision was closed using 2-0 and 3-0 nylon suture in a combination of vertical mattress, horizontal mattress and simple interrupted fashion. The incision was dressed with betadine soaked adaptic, 4x4 gauze, webril and 4" cuco wrap. RECOMMENDATIONS: -Continue IV abx while inpatient, discharge on 7 days culture directed oral antibiotics -F/u pathology, do not suspect osteomyelitis but if it is noted, recommend ID consult for abx -Keep dressing clean dry and intact, can be changed POD#2 with betadine soaked adaptic or xeroform, 4x4 gauze, kerlix and 4" cuco wrap, he can keep this dressing c/d/i until follow-up with me. -Heel WBAT in post op shoe only to limit flexion/extension of the hallux -Elevate LLE above level of heart at all times at rest -I will schedule patient follow-up in my clinic pending his discharge date Please reach out with any updates, questions or concerns. Trell Villatoro DPM Counts repoted as correct: Yes TRELL VILLATORO DPM May 13, 2025 17:14
[2025-05-13] MEDS: labetalol 20mg/4ml (5mg/ml) syringe IV PRN (17:29)
--- NOTE | 2025-05-13 18:11 | RADIOLOGY REPORT ---
Indication: LEFT FOOT XRAY POST OP Technique: DI FOOT,LIMITED (AP/LAT)FOOT LTD Comparison: None FINDINGS/IMPRESSION: There is a fracture of the 1st proximal phalanx. Surrounding soft tissue edema.
[2025-05-13] MEDS: morphine 4 MG/ML inj SYRINge IV PRN (18:23)
--- NOTE | 2025-05-13 19:16 | CARDIOLOGY REPORT ---
APPROVED REPORT EXAM: Comprehensive 2D, Doppler, and color-flow Echocardiogram. 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 180.6 cm/s AoV VTI 27.6 cm AO Peak GR. 13.0 mmHg AO Mean GR. 7 mmHg LVOT VTI 20.43 cm LVOT Peak Erwin. 122.8 cm/s MARQUITA(VTI)/BSA 2.11 cm2/m2 MARQUITA (VTI) 2.11 cm2 Mitral Valve MV E Velocity 99.9 cm/s MV DECEL TIME 80 ms MV A Velocity 134.0 cm/s E/A Ratio 0.7 TDI Lateral E' P. V8.87 cm/s Medial E' P. V 11.05 cm/s E/Lateral E' 11.3 E/Medial E' 9.0 Tricuspid Valve TR P. Velocity 214 cm/s RAP ESTIMATE 10 mmHg TR Peak Gr. 18 mmHg RVSP 28 mmHg LEFT VENTRICLE Normal LV size and function. Mild to moderate concentric hypertrophy. Overall LVEF is 65-70%. RIGHT VENTRICLE RV is normal size and function. ATRIA The left atrium size is normal. AORTIC VALVE Trileaflet AV appears mildly sclerotic without stenosis. Trivial insufficiency. MITRAL VALVE Mild mitral annular calcification without stenosis. Trace regurgitation. TRICUSPID VALVE The tricuspid valve is normal in structure with trace regurgitation. PULMONIC VALVE The pulmonary valve is normal in structure with physiologic insufficiency. GREAT VESSELS The aortic root is normal in size. The ascending aorta is normal in size. The IVC is normal in size a nd collapses >50% with inspiration. PERICARDIUM Normal pericardium. No effusion. Other Information Study Quality: Adequate Conclusion Overall LVEF is 65-70%. Normal LV size and function. Mild to moderate concentric hypertrophy. RV is normal size and function. Mild mitral annular calcification without stenosis. Trace regurgitation. The tricuspid valve is normal in structure with trace regurgitation. The pulmonary valve is normal in structure with physiologic insufficiency. Normal pericardium. No effusion.
--- NOTE | 2025-05-13 19:41 | PROGRESS NOTE- Residence ---
Progress Note - Resident Providers to CC Resident Creating Document: RG FLOWERS RES ~ Antibiotic Timeout Antibiotic Ordered?: Yes Subjective The patient was assessed and examined at the bedside, showing drowsiness. Patient to undergo surgery today. Objective Vital Signs Date Time Temp Pulse Resp B/P (MAP) Pulse Ox O2 Delivery O2 Flow Rate FiO2 05/13/25 18:30 75 17 149/94 (112) 96 Nasal Cannula 2.0 05/13/25 17:00 96.8 Result Diagram: 05/13/25 0543 05/13/25 0543 Drowsy, agitative and combative, in apparent distress HEENT: Atraumatic, normocephalic, EOMI, anicteric sclera ; pink conjunctiva Neck: Trachea midline. Supple, full range of motion, no JVD Cardiac: Regular rhythm, regular rate with no murmurs all over the precordium. Respiratory: Diminished breath sounds bilaterally, tachypnea, no wheezing ,rub or rales, Chest wall is symmetric and with multiple do a. Gastrointestinal: Abdomen symmetric, non-distended, soft, normal bowel sounds x4 quadrant, normoactive, no hepatosplenomegaly Musculoskeletal: Left lower extremity: Dressing in place Several bruit all over the body with significant discoloration Neurological: Could not be performed Skin: Warm and dry Coagulation Studies Laboratory Tests Test 05/10/25 20:47 05/13/25 05:43 Activated Partial Thromboplast Time 25 SECONDS (22-32) Prothrombin Time 10.3 SECONDS (9.0-12.0) INR International Normalized Ratio 1.0 INR Coagulation Comments Advance Care Planning Advanced Care plannin - 30 Minutes Plan Plan 1) Severe Alcohol Withdrawal high risk for delirium tremens / seizures Binge alcohol use Altered, severely agitated; already given phenobarbital and PRN lorazepam. Restraints and sitter in place. Plan: Head CT No intracranial abnormality identified. Continue CIWA monitoring q12h and prn; restraints per policy. Continue symptom triggered benzodiazepine strategy (lorazepam 2 mg IV q2h PRN per CIWA). Continue haloperidol 5 mg q.2h; Geodon on 10 mg q.6 H; monitor QTC prolongation Phenobarbital: ER dose given We will consult ICU for probable need of intubation if progressively somnolent, loss of airway reflexes, or respiratory depression from sedatives Thiamine 100 mg IV STAT then 100 mg IV daily x 3. Folic acid 1 mg IV daily Follow up with the echocardiogram 05/12/2025: Patient had a sudden rise in liver enzymes, hence held haloperidol 5 mg q.2h Recommended to continue Geodon 10 mg q.6 H; patient was combative and agitated until 3:00 a.m this day. He has been calm all through today, hence recommended to continue Geodon q.6 H and Ativan 2 mg IV p.r.n. We will consider consulting Dr. Thompson, offset pressman if there is any further decline or increased combativeness over time There are high chances he might end up requiring intubation/ phenobarbital along with transferred to ICU Follow up with the echocardiogram, pending Continue thiamine, folic acid as above 05/13/2025: Patient received phenobarbital overnight due to severe agitation Continue Geodon 10 mg q.6 H and phenobarbital 60 mg prn daily Echocardiogram showed normal EF with no valvular abnormalities 2) Rhabdomyolysis (CPK 23,704 on admission and downtrending) Severe rhabdo from prolonged intoxication/immobility; CPK improving but still very high. Risk for SUSIE, electrolyte derangements. Plan Resume isotonic IV fluids (0.9% NS) once sodium is stable Check CK q12h until falling and <5,000 Check urine output hourly; mona for accurate UOP Monitor for hyperkalemia, hypocalcemia, hyperphosphatemia Currently there is no need for urine alkalinization (bicarb) as his SUSIE is resolving 05/12/2025[place] [address] [place], recently repeat CPK tomorrow in a.m. Electrolyte levels: Stable Initiated D5 half NS at 150 cc/hour today 05/13/2025: CPK 7077 Continue D5 NS at 150. cc/hour 3) Hyponatremia concern for overly rapid correction Na 120 on presentation; after aggressive fluids it aniya to ~131 (fluctuations reported). Repeat sodium levels 134 Plan: Place all IV hypotonic / isotonic fluids on HOLD for now Check serum sodium q4h until stable Patient received a dose of desmopressin 1 mcg SC Initiated free water (D5W) infusion Frequent neuro checks q1h while sodium is being actively managed 05/12/2025: Sodium levels: 134, 135, 135, 136 since yesterday Unable to assess mentation currently, as patient is receiving hypnotics Initiated D5 half NS had 150 cc/hour Frequent neuro checks q.1h if possible 05/13/2025: Sodium 138 today Continue D5 half NS at 150 cc/hour 4) Possible toxic alcohol / isopropyl alcohol ingestion Friends report prior history of drinking isopropyl/alcohol swabs Plan Poison Control was consulted; recommended monitoring for now Serum ethanol levels, UA toxicology, ethylene glycol levels ordered 05/12/2025: Serum ethanol levels: Less than 10 UA toxicology: Positive for opiates, cannabinoids, barbiturates Pending ethanol glycol level 5) Possible UTI / sepsis POA UA positive; patient empirically started on ceftriaxone 1 g IV daily. Vitals and cultures pending Plan: Blood cultures x2 and urine culture; pending Initiated cefazolin 1 g q.8h Procalcitonin: 11.24; lactic acid within normal limits Probable source of infection: Open wounds of the left great toe/ UTI 05/12/2025: WBC count trended down to 11.2 from 17.4 and 14.6 Blood cultures and urine cultures negative until today Continue ceftriaxone 1 g IV daily today Repeat procalcitonin ordered 05/13/2025: WBC count normalized to 10.3 Blood culture and urine culture still negative Discontinue ceftriaxone today Repeat procalcitonin levels 2.13 6) Laceration of the left hallux extending to the bone, accompanied by surrounding cellulitis Deep laceration noted on exam; Concern for contamination and possible osteomyelitis if chronic. Plan Podiatry consulted STAT for exam, bedside irrigation/debridement vs OR washout. Foot x-ray ordered to rule out bony involvement Tetanus status; tetanus booster if indicated after patient is stable Change antibiotics to cefazolin, we will adjust antibiotics based on cultures tomorrow 05/12/2025: The floor care specialist has recommended an immediate MRI of the left foot, with or without contrast, to evaluate for any signs of early osteomyelitis and a potential rupture of the flexor hallucis longus (FHL). The X-ray of the left foot revealed: no indications of an acute fracture or dislocation. There are likely chronic sequelae from a previous trauma located inferiorly adjacent to the medial malleolus. Additionally, degenerative changes were noted in the fifth distal interphalangeal joint, along with moderate diffuse soft tissue swelling of the first digit. A laceration of the left hallux extends to the bone, accompanied by surrounding cellulitis. Due to the lack of precise historical information regarding the injury timeline and the presence of a laceration extending to the bone with surrounding cellulitis, the patient is expected to benefit from surgical intervention. This may include irrigation and debridement of the left hallux, with potential closure, a possible bone biopsy, a possible repair of the FHL, and the possibility of a staged procedure. The patient is to remain NPO after midnight. However, the patient was unable to undergo the MRI as he is currently restrained and is not a suitable candidate at this time. A discussion was held regarding the decision to not proceed with the MRI scan, and the floor care specialist has recommended moving forward with surgery tomorrow morning without the MRI for the time being. Due to unknown acute 8 history, timeline and extension to the underlying bone; initiated empiric antibiotics for now; transitioned cefazolin to ceftriaxone 1 g IV daily and vancomycin pharmacy to dose for now We shall deescalate antibiotics based on procedure tomorrow 05/13/2025: Patient underwent Left plantar hallux laceration irrigation and debridement, debridement of FHL tendon, bone biopsy, laceration repair Bone biopsy along with wound cultures were obtained during the surgery for antibiotic direction Mother Tester recommended 1 week of oral antibiotics on discharge Bone quality was good and tendon was partially tone with no major pathologies We will deescalate antibiotics currently to cefazolin from ceftriaxone and vancomycin (no evidence of purulence during the suegery) 7) Alcoholic hepatitis / hepatic dysfunction Transaminemia Elevated LFTs reported; alcoholic hepatitis possible Plan LFTs on admission: AST: 1416 trended down to 928; ALT: [address] scan showed: No evidence of acute intrathoracic or intra- abdominal/pelvic injury Avoid hepatotoxic meds; adjust doses as needed 05/12/2025: Sudden rise in LFTs: AST 2464, ALT 1054 Possible acute causes include: Extensive use of haloperidol over the past 24 hours; hence held haloperidol for now Awaiting hepatitis panel Patient had no evidence of any hypotensive episodes over the past 24 hours,hence likely not ischemic hepatopathy/ hepatitis Initiated maintenance fluids: D5 half NS at 150 cc/hour today Repeat ammonia levels ordered Ultrasound abdomen ordered 05/13/2025: LFTs trended down to: AST 958 and ALT 745 Hepatitis panel negative Repeat ammonia levels normal Ultrasound abdomen showed hepatic steatosis 8. Acute kidney injury, prerenal (vasomotor nephropathy): Resolved 9. Hypokalemia: Potassium levels 3.3 today, continue monitoring CMP, replacement per protocol DVT prophylaxis: SCDs in place now GI prophylaxis: pantoprazole 40 mg IV daily Sitter/restraints: continue sitter NPO/aspiration precautions until swallow evaluation if oral intake considered. Continue telemetry & frequent neuro checks. Rg Flowers MD Internal Medicine Resident, PGY-2 Date of Service: May 13, 2025 Billing Provider: TEMO MACARIO MD Common Visit Codes: 13514-[id number] INP/OBS CARE(HIGH) RG FLOWERS, RES May 13, 2025 19:41 TEMO MACARIO MD May 14, 2025 22:38
[2025-05-13] MEDS ORDERED: PHENOBARBITAL SODIUM 65 MG/ML IV PRN (19:54)
[2025-05-13] MEDS: VANCOmycin 1250MG/NS 250ml Bag 250 ML IV SCH (20:58)
[2025-05-14] VITALS (10 sets, daily range): BP systolic 120–182; BP diastolic 57–102; PULSE 74–101; RESP 18–22; TEMP 97.2–97.9; O2SAT 96–99
[2025-05-14] MEDS: VANCOMYCIN LEVEL IV ONE (07:30)
[2025-05-14 08:09] LABS: INR 1.0 INR
[2025-05-14 08:18] LABS: MEAN PLATELET VOLUME 7.3 FL (7.4-10.4); RED CELL DISTRIBUTION WIDTH 13.4 % (11.5-14.5)
[2025-05-14 08:21] LABS: CREATININE 0.96 MG/DL (0.60-1.10); PHOSPHORUS 3.0 MG/DL (2.3-4.5); TOTAL CARBON DIOXIDE 23.4 MMOL/L (24-32); eCRCL 87 ML/MIN; eGFR 81 ML/MIN
[2025-05-14] MEDS ORDERED: magnesium sulf-water 4G/100mL 100 ML IV PRN ×2 (09:30→18:00)
[2025-05-14] MEDS ORDERED: potassium Cl 20 mEq SR tablet PO PRN ×3 (09:30→18:00)
[2025-05-14] MEDS ORDERED: magnesium sulf-water 2g/50mL 50 ML IV PRN ×2 (09:30→18:00)
[2025-05-14] MEDS ORDERED: magnesium Cl slow-release 64mg tablet PO PRN ×2 (09:30→18:00)
[2025-05-14] MEDS ORDERED: potassium Cl 40MEQ/1/2NS 520ml 520 ML IV PRN ×2 (09:30→18:00)
[2025-05-14] MEDS: potassium Cl 20 mEq SR tablet PO PRN (12:16)
[2025-05-14] MEDS: magnesium hydroxide 30ml (MOM) UD suspension PO PRN (15:30)
[2025-05-14] MEDS: JUVEN Shake w/Arg/Glut/Ca2+Bmb (Juven 19.3gm) pkt 240ml PO SCH (17:30)
--- NOTE | 2025-05-14 18:11 | PROGRESS NOTE- Residence ---
Progress Note - Resident Providers to CC Resident Creating Document: RG FLOWERS RES ~ Antibiotic Timeout Antibiotic Ordered?: Yes Subjective The patient was assessed and examined at the bedside, appears a little alert and oriented. Complaints of left lower extremity pain 03/19. Objective Vital Signs Date Time Temp Pulse Resp B/P (MAP) Pulse Ox O2 Delivery O2 Flow Rate FiO2 05/14/25 17:47 85 05/14/25 17:42 18 05/14/25 14:20 97.8 164/90 (114) 99 Nasal Cannula 2.0 Result Diagram: 05/14/25 0746 05/14/25 0746 Appears alert and oriented today HEENT: Atraumatic, normocephalic, EOMI, anicteric sclera ; pink conjunctiva Neck: Trachea midline. Supple, full range of motion, no JVD Cardiac: Regular rhythm, regular rate with no murmurs all over the precordium. Respiratory: Diminished breath sounds bilaterally, tachypnea, no wheezing ,rub or rales, Chest wall is symmetric and with multiple do a. Gastrointestinal: Abdomen symmetric, non-distended, soft, normal bowel sounds x4 quadrant, normoactive, no hepatosplenomegaly Musculoskeletal: Left lower extremity: Dressing in place Several bruit all over the body with significant discoloration Neurological: Could not be performed, Skin: Warm and dry Coagulation Studies Laboratory Tests Test 05/10/25 20:47 05/14/25 07:46 Activated Partial Thromboplast Time 25 SECONDS (22-32) Prothrombin Time 10.3 SECONDS (9.0-12.0) INR International Normalized Ratio 1.0 INR Coagulation Comments Advance Care Planning Advanced Care plannin - 30 Minutes Plan Plan 1) Severe Alcohol Withdrawal high risk for delirium tremens / seizures Binge alcohol use Altered, severely agitated; already given phenobarbital and PRN lorazepam. Restraints and sitter in place. Plan: Head CT No intracranial abnormality identified. Continue CIWA monitoring q12h and prn; restraints per policy. Continue symptom triggered benzodiazepine strategy (lorazepam 2 mg IV q2h PRN per CIWA). Continue haloperidol 5 mg q.2h; Geodon on 10 mg q.6 H; monitor QTC prolongation Phenobarbital: ER dose given We will consult ICU for probable need of intubation if progressively somnolent, loss of airway reflexes, or respiratory depression from sedatives Thiamine 100 mg IV STAT then 100 mg IV daily x 3. Folic acid 1 mg IV daily Follow up with the echocardiogram 05/12/2025: Patient had a sudden rise in liver enzymes, hence held haloperidol 5 mg q.2h Recommended to continue Geodon 10 mg q.6 H; patient was combative and agitated until 3:00 a.m this day. He has been calm all through today, hence recommended to continue Geodon q.6 H and Ativan 2 mg IV p.r.n. We will consider consulting Dr. Thompson, healthcare administration intern if there is any further decline or increased combativeness over time There are high chances he might end up requiring intubation/ phenobarbital along with transferred to ICU Follow up with the echocardiogram, pending Continue thiamine, folic acid as above 05/13/2025: Patient received phenobarbital overnight due to severe agitation Continue Geodon 10 mg q.6 H and phenobarbital 60 mg prn daily Echocardiogram showed normal EF with no valvular abnormalities 05/14/2025: Patient appears to be little alert and oriented today Started oral feeds, advance diet as tolerated Continue Geodon 10 mg q.6 H and lorazepam/Valium as needed 2) Rhabdomyolysis (CPK 23,704 on admission and downtrending) Severe rhabdo from prolonged intoxication/immobility; CPK improving but still very high. Risk for SUSIE, electrolyte derangements. Plan Resume isotonic IV fluids (0.9% NS) once sodium is stable Check CK q12h until falling and <5,000 Check urine output hourly; mona for accurate UOP Monitor for hyperkalemia, hypocalcemia, hyperphosphatemia Currently there is no need for urine alkalinization (bicarb) as his SUSIE is resolving 05/12/2025[place] [address] today, recently repeat CPK tomorrow in a.m. Electrolyte levels: Stable Initiated D5 half NS at 150 cc/hour today 05/13/2025: CPK 7077 Continue D5 NS at 150. cc/hour 05/14/2025: Repeat CPK 4549 Patient is started on oral feeds today Based on oral intake, can discontinue D5 half NS tomorrow 3) Hyponatremia concern for overly rapid correction Na 120 on presentation; after aggressive fluids it aniya to ~131 (fluctuations reported). Repeat sodium levels 134 Plan: Place all IV hypotonic / isotonic fluids on HOLD for now Check serum sodium q4h until stable Patient received a dose of desmopressin 1 mcg SC Initiated free water (D5W) infusion Frequent neuro checks q1h while sodium is being actively managed 05/12/2025: Sodium levels: 134, 135, 135, 136 since yesterday Unable to assess mentation currently, as patient is receiving hypnotics Initiated D5 half NS had 150 cc/hour Frequent neuro checks q.1h if possible 05/13/2025: Sodium 138 today Continue D5 half NS at 150 cc/hour 05/14/2025: Sodium level stable at 138 today 4) Possible toxic alcohol / isopropyl alcohol ingestion Friends report prior history of drinking isopropyl/alcohol swabs Plan Poison Control was consulted; recommended monitoring for now Serum ethanol levels, UA toxicology, ethylene glycol levels ordered 05/12/2025: Serum ethanol levels: Less than 10 UA toxicology: Positive for opiates, cannabinoids, barbiturates Pending ethanol glycol level 5) Possible UTI / sepsis POA UA positive; patient empirically started on ceftriaxone 1 g IV daily. Vitals and cultures pending Plan: Blood cultures x2 and urine culture; pending Initiated cefazolin 1 g q.8h Procalcitonin: 11.24; lactic acid within normal limits Probable source of infection: Open wounds of the left great toe/ UTI 05/12/2025: WBC count trended down to 11.2 from 17.4 and 14.6 Blood cultures and urine cultures negative until today Continue ceftriaxone 1 g IV daily today Repeat procalcitonin ordered 05/13/2025: WBC count normalized to 10.3 Blood culture and urine culture still negative Discontinue ceftriaxone today Repeat procalcitonin levels 2.13 6) Laceration of the left hallux extending to the bone, accompanied by surrounding cellulitis Deep laceration noted on exam; Concern for contamination and possible osteomyelitis if chronic. Plan Podiatry consulted STAT for exam, bedside irrigation/debridement vs OR washout. Foot x-ray ordered to rule out bony involvement Tetanus status; tetanus booster if indicated after patient is stable Change antibiotics to cefazolin, we will adjust antibiotics based on cultures tomorrow 05/12/2025: The procedures rn has recommended an immediate MRI of the left foot, with or without contrast, to evaluate for any signs of early osteomyelitis and a potential rupture of the flexor hallucis longus (FHL). The X-ray of the left foot revealed: no indications of an acute fracture or dislocation. There are likely chronic sequelae from a previous trauma located inferiorly adjacent to the medial malleolus. Additionally, degenerative changes were noted in the fifth distal interphalangeal joint, along with moderate diffuse soft tissue swelling of the first digit. A laceration of the left hallux extends to the bone, accompanied by surrounding cellulitis. Due to the lack of precise historical information regarding the injury timeline and the presence of a laceration extending to the bone with surrounding cellulitis, the patient is expected to benefit from surgical intervention. This may include irrigation and debridement of the left hallux, with potential closure, a possible bone biopsy, a possible repair of the FHL, and the possibility of a staged procedure. The patient is to remain NPO after midnight. However, the patient was unable to undergo the MRI as he is currently restrained and is not a suitable candidate at this time. A discussion was held regarding the decision to not proceed with the MRI scan, and the procedures rn has recommended moving forward with surgery tomorrow morning without the MRI for the time being. Due to unknown acute 8 history, timeline and extension to the underlying bone; initiated empiric antibiotics for now; transitioned cefazolin to ceftriaxone 1 g IV daily and vancomycin pharmacy to dose for now We shall deescalate antibiotics based on procedure tomorrow 05/13/2025: Patient underwent Left plantar hallux laceration irrigation and debridement, debridement of FHL tendon, bone biopsy, laceration repair Bone biopsy along with wound cultures were obtained during the surgery for antibiotic direction Loan Supervisor recommended 1 week of oral antibiotics on discharge Bone quality was good and tendon was partially tone with no major pathologies We will deescalate antibiotics currently to cefazolin from ceftriaxone and vancomycin (no evidence of purulence during the suegery) 05/14/2025: Transition back to cefazolin 1 g IV b.i.d. Patient will be discharged on oral antibiotics on discharge; as per podiatric 7) Alcoholic hepatitis / hepatic dysfunction Transaminemia Elevated LFTs reported; alcoholic hepatitis possible Plan LFTs on admission: AST: 1416 trended down to 928; ALT: [address] scan showed: No evidence of acute intrathoracic or intra- abdominal/pelvic injury Avoid hepatotoxic meds; adjust doses as needed 05/12/2025: Sudden rise in LFTs: AST 2464, ALT 1054 Possible acute causes include: Extensive use of haloperidol over the past 24 hours; hence held haloperidol for now Awaiting hepatitis panel Patient had no evidence of any hypotensive episodes over the past 24 hours,hence likely not ischemic hepatopathy/ hepatitis Initiated maintenance fluids: D5 half NS at 150 cc/hour today Repeat ammonia levels ordered Ultrasound abdomen ordered 05/13/2025: LFTs trended down to: AST 958 and ALT 745 Hepatitis panel negative Repeat ammonia levels normal Ultrasound abdomen showed hepatic steatosis 05/14/2025: LFTs trended down to AST 288 and ALT, 492; continue monitoring 8. Acute kidney injury, prerenal (vasomotor nephropathy): Resolved 9. Hypokalemia: Potassium levels 3.3 today, continue monitoring CMP, replacement per protocol DVT prophylaxis: SCDs in place now GI prophylaxis: pantoprazole 40 mg IV daily Sitter/restraints: Can DC sitter based on condition tomorrow Aspiration precautions until swallow evaluation if oral intake considered. Continue telemetry & frequent neuro checks. Rg Flowers MD Internal Medicine Resident, PGY-2 Date of Service: May 14, 2025 Billing Provider: TEMO MACARIO MD Common Visit Codes: [id number] INP/OBS CARE(HIGH) RG FLOWERS, RES May 14, 2025 18:11 TEMO MACARIO MD May 14, 2025 22:39
[2025-05-14] MEDS ORDERED: VANCOMYCIN/WATER FOR INJ (PEG) 1.5GM/300 ML IVPB IV SCH (20:00)
[2025-05-14] MEDS: ceFAZolin/D5W- 1GM premix 50 ML IV SCH (20:15)
[2025-05-14] MEDS: K and/or MAG REPLACEMENT MC SCH (20:45)
[2025-05-15] VITALS (8 sets, daily range): BP systolic 147–188; BP diastolic 79–105; PULSE 79–88; RESP 13–24; TEMP 97.1–98.1; O2SAT 94–98
[2025-05-15] MEDS: ceFAZolin/D5W- 1GM premix 50 ML IV SCH (03:16)
[2025-05-15 07:06] LABS: MEAN PLATELET VOLUME 7.5 FL (7.4-10.4); RED CELL DISTRIBUTION WIDTH 13.4 % (11.5-14.5)
[2025-05-15 07:09] LABS: INR 1.0 INR
[2025-05-15] MEDS: METHYLPHENIDATE 36 MG PO SCH (08:00)
[2025-05-15 08:08] LABS: BANDS% (MANUAL) 3.0 % (0-10); BASOPHILS % (MANUAL) 1.0 % (0-1); EOSINOPHILS % (MANUAL) 3.0 % (0-6); LYMPHOCYTES % (MANUAL) 12.0 % (21-51); MONOCYTES % (MANUAL) 17.0 % (2-12); NEUTROPHILS % (MANUAL) 63.0 % (42-75); REACTIVE LYMPHOCYTES % 1.0 % (0-0)
[2025-05-15 08:09] LABS: PLATELET ESTIMATE NORMAL
[2025-05-15 13:41] LABS: CREATININE 0.99 MG/DL (0.60-1.10); PHOSPHORUS 1.9 MG/DL (2.3-4.5); TOTAL CARBON DIOXIDE 26.8 MMOL/L (24-32); eCRCL 84 ML/MIN; eGFR 78 ML/MIN
[2025-05-15] MEDS: HYDROmorphone inj. 0.5 MG/0.5 ML DISP.SYRIN IV SCH (16:00)
--- NOTE | 2025-05-15 19:46 | PROGRESS NOTE- Residence ---
Progress Note - Resident Providers to CC Resident Creating Document: AMANDA CRUZ RES ~ Antibiotic Timeout Antibiotic Ordered?: Yes Subjective The patient was assessed and examined at the bedside, appears a little alert and oriented. He stated that he was feeling thirsty, and he was able to drink. He states that he left lower extremity pain 6/10. Objective Vital Signs Date Time Temp Pulse Resp B/P (MAP) Pulse Ox O2 Delivery O2 Flow Rate FiO2 05/15/25 18:10 16 05/15/25 15:00 97.6 81 148/79 (102) 97 Room Air 05/14/25 22:00 2.0 Result Diagram: 05/15/25 0605/15/25 06 Appears alert and oriented today HEENT: Atraumatic, normocephalic, EOMI, anicteric sclera ; pink conjunctiva Neck: Trachea midline. Supple, full range of motion, no JVD Cardiac: Regular rhythm, regular rate with no murmurs all over the precordium. Respiratory:Diminished breath sounds bilaterally, tachypnea, no wheezing ,rub or rales,Chest wall is symmetric and with multiple do a. Gastrointestinal: Abdomen symmetric, non-distended, soft, normal bowel sounds x4 quadrant, normoactive, no hepatosplenomegaly Musculoskeletal: Left lower extremity: Dressing in place Several bruit all over the body with significant discoloration Neurological: Could not be performed, Skin: Warm and dry Coagulation Studies Laboratory Tests Test 05/10/25 20:47 05/15/25 06:29 Activated Partial Thromboplast Time 25 SECONDS (22-32) Prothrombin Time 10.2 SECONDS (9.0-12.0) INR International Normalized Ratio 1.0 INR Coagulation Comments Plan Plan 1) Severe Alcohol Withdrawal high risk for delirium tremens / seizures Binge alcohol use Altered, severely agitated; already given phenobarbital and PRN lorazepam. Restraints and sitter in place. Plan: Head CT No intracranial abnormality identified. Continue CIWA monitoring q12h and prn; restraints per policy. Continue symptom triggered benzodiazepine strategy (lorazepam 2 mg IV q2h PRN per CIWA). Continue haloperidol 5 mg q.2h; Geodon on 10 mg q.6 H; monitor QTC prolongation Phenobarbital: ER dose given We will consult ICU for probable need of intubation if progressively somnolent, loss of airway reflexes, or respiratory depression from sedatives Thiamine 100 mg IV STAT then 100 mg IV daily x 3. Folic acid 1 mg IV daily Follow up with the echocardiogram 05/12/2025: Patient had a sudden rise in liver enzymes, hence held haloperidol 5 mg q.2h Recommended to continue Geodon 10 mg q.6 H; patient was combative and agitated until 3:00 a.m this day. He has been calm all through today, hence recommended to continue Geodon q.6 H and Ativan 2 mg IV p.r.n. We will consider consulting Dr. Thompson, financial systems administrator if there is any further decline or increased combativeness over time There are high chances he might end up requiring intubation/ phenobarbital along with transferred to ICU Follow up with the echocardiogram, pending Continue thiamine, folic acid as above 05/13/2025: Patient received phenobarbital overnight due to severe agitation Continue Geodon 10 mg q.6 H and phenobarbital 60 mg prn daily Echocardiogram showed normal EF with no valvular abnormalities 05/14/2025: Patient appears to be little alert and oriented today Started oral feeds, advance diet as tolerated Continue Geodon 10 mg q.6 H and lorazepam/Valium as needed 05/15/2025: He was agitated today in the morning at around 4:00 a.m. and was biting on restraints. He was given Geodon and Valium, and 1 dose of haloperidol. Patient appears to be little alert and oriented today at 11:00 a.m. Ordered IV Dilaudid 0.5 mg q.4h for his pain. Continue alcohol withdrawal protocol Continue Valium 10 mg q.2h if OH>100 and BP> 140/80 Continue Geodon p.r.n. for agitation Recheck vitals q.2h Advance diet as tolerated, discontinued IV fluids Monitor behavioral status 2) Rhabdomyolysis (CPK 23,704 on admission and downtrending) Severe rhabdo from prolonged intoxication/immobility; CPK improving but still very high. Risk for SUSIE, electrolyte derangements. Plan Resume isotonic IV fluids (0.9% NS) once sodium is stable Check CK q12h until falling and <5,000 Check urine output hourly; mona for accurate UOP Monitor for hyperkalemia, hypocalcemia, hyperphosphatemia Currently there is no need for urine alkalinization (bicarb) as his SUSIE is resolving 05/12/2025[place] [address] today, recently repeat CPK tomorrow in a.m. Electrolyte levels: Stable Initiated D5 half NS at 150 cc/hour today 05/13/2025: CPK 7077 Continue D5 NS at 150. cc/hour 05/14/2025: Repeat CPK 4549 Patient is started on oral feeds today Based on oral intake, can discontinue D5 half NS tomorrow 05/15/25: Ordered CPK Patient is able to drink and eat, discontinued IV fluids 3) Hyponatremia concern for overly rapid correction Na 120 on presentation; after aggressive fluids it aniya to ~131 (fluctuations reported). Repeat sodium levels 134 Plan: Place all IV hypotonic / isotonic fluids on HOLD for now Check serum sodium q4h until stable Patient received a dose of desmopressin 1 mcg SC Initiated free water (D5W) infusion Frequent neuro checks q1h while sodium is being actively managed 05/12/2025: Sodium levels: 134, 135, 135, 136 since yesterday Unable to assess mentation currently, as patient is receiving hypnotics Initiated D5 half NS had 150 cc/hour Frequent neuro checks q.1h if possible 05/13/2025: Sodium 138 today Continue D5 half NS at 150 cc/hour 05/14/2025: Sodium level stable at 138 today 05/15/2025: Sodium 135 today 4) Possible toxic alcohol ingestion Friends report prior history of drinking alcohol swabs Plan Poison Control was consulted; recommended monitoring for now Serum ethanol levels, UA toxicology ordered 05/12/2025: Serum ethanol levels: Less than 10 UA toxicology: Positive for opiates, cannabinoids, barbiturates 5) Possible UTI / sepsis POA UA positive; patient empirically started on ceftriaxone 1 g IV daily. Vitals and cultures pending Plan: Blood cultures x2 and urine culture; pending Initiated cefazolin 1 g q.8h Procalcitonin: 11.24; lactic acid within normal limits Probable source of infection: Open wounds of the left great toe/ UTI 05/12/2025: WBC count trended down to 11.2 from 17.4 and 14.6 Blood cultures and urine cultures negative until today Continue ceftriaxone 1 g IV daily today Repeat procalcitonin ordered 05/13/2025: WBC count normalized to 10.3 Blood culture and urine culture still negative Discontinue ceftriaxone today Repeat procalcitonin levels 2.13 6) Laceration of the left hallux extending to the bone, accompanied by surrounding cellulitis Deep laceration noted on exam; Concern for contamination and possible osteomyelitis if chronic. Plan Podiatry consulted STAT for exam, bedside irrigation/debridement vs OR washout. Foot x-ray ordered to rule out bony involvement Tetanus status; tetanus booster if indicated after patient is stable Change antibiotics to cefazolin, we will adjust antibiotics based on cultures tomorrow 05/12/2025: The fluid power mechanic has recommended an immediate MRI of the left foot, with or without contrast, to evaluate for any signs of early osteomyelitis and a potential rupture of the flexor hallucis longus (FHL). The X-ray of the left foot revealed: no indications of an acute fracture or dislocation. There are likely chronic sequelae from a previous trauma located inferiorly adjacent to the medial malleolus. Additionally, degenerative changes were noted in the fifth distal interphalangeal joint, along with moderate diffuse soft tissue swelling of the first digit. A laceration of the left hallux extends to the bone, accompanied by surrounding cellulitis. Due to the lack of precise historical information regarding the injury timeline and the presence of a laceration extending to the bone with surrounding cellulitis, the patient is expected to benefit from surgical intervention. This may include irrigation and debridement of the left hallux, with potential closure, a possible bone biopsy, a possible repair of the FHL, and the possibility of a staged procedure. The patient is to remain NPO after midnight. However, the patient was unable to undergo the MRI as he is currently restrained and is not a suitable candidate at this time. A discussion was held regarding the decision to not proceed with the MRI scan, and the fluid power mechanic has recommended moving forward with surgery tomorrow morning without the MRI for the time being. Due to unknown acute 8 history, timeline and extension to the underlying bone; initiated empiric antibiotics for now; transitioned cefazolin to ceftriaxone 1 g IV daily and vancomycin pharmacy to dose for now We shall deescalate antibiotics based on procedure tomorrow 05/13/2025: Patient underwent Left plantar hallux laceration irrigation and debridement, debridement of FHL tendon, bone biopsy, laceration repair Bone biopsy along with wound cultures were obtained during the surgery for antibiotic direction Water Plant Operator recommended 1 week of oral antibiotics on discharge Bone quality was good and tendon was partially tone with no major pathologies We will deescalate antibiotics currently to cefazolin from ceftriaxone and vancomycin (no evidence of purulence during the suegery) 05/14/2025: Transition back to cefazolin 1 g IV b.i.d. Patient will be discharged on oral antibiotics on discharge; as per podiatric 05/15/2025: Continue IV cefazolin 1 g b.i.d. 7) Alcoholic hepatitis / hepatic dysfunction Transaminemia Elevated LFTs reported; alcoholic hepatitis possible Plan LFTs on admission: AST: 1416 trended down to 928; ALT: [address] scan showed: No evidence of acute intrathoracic or intra- abdominal/pelvic injury Avoid hepatotoxic meds; adjust doses as needed 05/12/2025: Sudden rise in LFTs: AST 2464, ALT 1054 Possible acute causes include: Extensive use of haloperidol over the past 24 hours; hence held haloperidol for now Awaiting hepatitis panel Patient had no evidence of any hypotensive episodes over the past 24 hours,hence likely not ischemic hepatopathy/ hepatitis Initiated maintenance fluids: D5 half NS at 150 cc/hour today Repeat ammonia levels ordered Ultrasound abdomen ordered 05/13/2025: LFTs trended down to: AST 958 and ALT 745 Hepatitis panel negative Repeat ammonia levels normal Ultrasound abdomen showed hepatic steatosis 05/14/2025: LFTs trended down to AST 288 and ALT, 492; continue monitoring 05/15/25: LFTs trended down to AST 153 and ALT 379, continue monitoring 8. Acute kidney injury, prerenal (vasomotor nephropathy): Resolved 9. Hypokalemia: Potassium levels 3.3 today, continue monitoring CMP, replacement per protocol DVT prophylaxis: SCDs in place now GI prophylaxis: pantoprazole 40 mg IV daily Sitter/restraints: Can DC sitter based on condition tomorrow Swallow test done, ST recommends patient diet with puree diet textures and thin liquids Continue telemetry & frequent neuro checks. Resident MD attestation: The patient note has been reviewed and supervised by senior residents PGY-2/ PGY-3. Patient was seen, examined and discussed with attending physician. Amanda Cruz MD Internal Medicine resident, PGY-1 Date of Service: May 15, 2025 Billing Provider: TEMO MACARIO MD Common Visit Codes: [id number] INP/OBS CARE(HIGH) AMANDA CRUZ RES May 15, 2025 19:46 TEMO MACARIO MD May 17, 2025 07:27
[2025-05-16] VITALS (7 sets, daily range): BP systolic 110–176; BP diastolic 61–97; PULSE 72–92; RESP 17–22; TEMP 97.4–97.8; O2SAT 93–98
[2025-05-16] MEDS: haloperidol lactate 5mg/ml inj IM PRN (04:18)
[2025-05-16 07:29] LABS: MEAN PLATELET VOLUME 7.1 FL (7.4-10.4); RED CELL DISTRIBUTION WIDTH 13.5 % (11.5-14.5)
[2025-05-16] MEDS ORDERED: VANCOMYCIN LEVEL IV ONE (07:30)
[2025-05-16 07:38] LABS: INR 1.0 INR
[2025-05-16 08:05] LABS: CREATININE 0.79 MG/DL (0.60-1.10); PHOSPHORUS 3.7 MG/DL (2.3-4.5); TOTAL CARBON DIOXIDE 28.1 MMOL/L (24-32); eCRCL 106 ML/MIN; eGFR > 90 ML/MIN
[2025-05-16] MEDS: pantoprazole 40mg Tablet.DR PO SCH (09:04)
[2025-05-16] MEDS: tPA-cathflo 2mg/2ml IV flush 2 MG/2 ML VIAL IVF ONE (09:08)
--- NOTE | 2025-05-16 20:31 | PROGRESS NOTE- Residence ---
Progress Note - Resident Providers to CC Resident Creating Document: AMANDA CRUZ RES ~ Antibiotic Timeout Antibiotic Ordered?: Yes Subjective The patient was assessed and examined at the bedside, appears a little alert and oriented. He appears less aggressive. His pain has improved and is able to void and eat. His disorientation and combative behaviors were fluctuating. Objective Vital Signs Date Time Temp Pulse Resp B/P (MAP) Pulse Ox O2 Delivery O2 Flow Rate FiO2 05/16/25 15:20 97.7 80 18 143/80 (101) 93 Room Air 05/16/25 07:55 2.0 Result Diagram: 05/16/25 0641 05/16/25 06 Appears alert and oriented today HEENT: Atraumatic, normocephalic, EOMI, anicteric sclera ; pink conjunctiva Neck: Trachea midline. Supple, full range of motion, no JVD Cardiac: Regular rhythm, regular rate with no murmurs all over the precordium. Respiratory:Diminished breath sounds bilaterally, tachypnea, no wheezing ,rub or rales,Chest wall is symmetric and with multiple do a. Gastrointestinal: Abdomen symmetric, non-distended, soft, normal bowel sounds x4 quadrant, normoactive, no hepatosplenomegaly Musculoskeletal: Left lower extremity: Dressing in place Several bruit all over the body with significant discoloration Neurological: Could not be performed, Skin: Warm and dry Coagulation Studies Laboratory Tests Test 05/10/25 20:47 05/16/25 06:41 Activated Partial Thromboplast Time 25 SECONDS (22-32) Prothrombin Time 10.0 SECONDS (9.0-12.0) INR International Normalized Ratio 1.0 INR Coagulation Comments Plan Plan 1) Severe Alcohol Withdrawal high risk for delirium tremens / seizures Binge alcohol use Altered, severely agitated; already given phenobarbital and PRN lorazepam. Restraints and sitter in place. Plan: Head CT No intracranial abnormality identified. Continue CIWA monitoring q12h and prn; restraints per policy. Continue symptom triggered benzodiazepine strategy (lorazepam 2 mg IV q2h PRN per CIWA). Continue haloperidol 5 mg q.2h; Geodon on 10 mg q.6 H; monitor QTC prolongation Phenobarbital: ER dose given We will consult ICU for probable need of intubation if progressively somnolent, loss of airway reflexes, or respiratory depression from sedatives Thiamine 100 mg IV STAT then 100 mg IV daily x 3. Folic acid 1 mg IV daily Follow up with the echocardiogram 05/12/2025: Patient had a sudden rise in liver enzymes, hence held haloperidol 5 mg q.2h Recommended to continue Geodon 10 mg q.6 H; patient was combative and agitated until 3:00 a.m this day. He has been calm all through today, hence recommended to continue Geodon q.6 H and Ativan 2 mg IV p.r.n. We will consider consulting Dr. Thompson, filler feeder if there is any further decline or increased combativeness over time There are high chances he might end up requiring intubation/ phenobarbital along with transferred to ICU Follow up with the echocardiogram, pending Continue thiamine, folic acid as above 05/13/2025: Patient received phenobarbital overnight due to severe agitation Continue Geodon 10 mg q.6 H and phenobarbital 60 mg prn daily Echocardiogram showed normal EF with no valvular abnormalities 05/14/2025: Patient appears to be little alert and oriented today Started oral feeds, advance diet as tolerated Continue Geodon 10 mg q.6 H and lorazepam/Valium as needed 05/15/2025: He was agitated today in the morning at around 4:00 a.m. and was biting on restraints. He was given Geodon and Valium, and 1 dose of haloperidol. Patient appears to be little alert and oriented today at 11:00 a.m. Ordered IV Dilaudid 0.5 mg q.4h for his pain. Continue alcohol withdrawal protocol Continue Valium 10 mg q.2h if NE>100 and BP> 140/80 Continue Geodon p.r.n. for agitation Recheck vitals q.2h Advance diet as tolerated, discontinued IV fluids Monitor behavioral status 05/16/2025: He was aggressive in the morning and received Valium 3 times, Geodon once at 2 am and haloperidol once at 4 am His blood pressure has been fluctuating, pulse rate is normal Continue alcohol withdrawal protocol and pain medication Monitor behavioral status 2) Rhabdomyolysis (CPK 23,704 on admission and downtrending) Severe rhabdo from prolonged intoxication/immobility; CPK improving but still very high. Risk for SUSIE, electrolyte derangements. Plan Resume isotonic IV fluids (0.9% NS) once sodium is stable Check CK q12h until falling and <5,000 Check urine output hourly; mona for accurate UOP Monitor for hyperkalemia, hypocalcemia, hyperphosphatemia Currently there is no need for urine alkalinization (bicarb) as his SUSIE is resolving 05/12/2025: [place] [address] today, recently repeat CPK tomorrow in a.m. Electrolyte levels: Stable Initiated D5 half NS at 150 cc/hour today 05/13/2025: CPK 7077 Continue D5 NS at 150. cc/hour 05/14/2025: Repeat CPK 4549 Patient is started on oral feeds today Based on oral intake, can discontinue D5 half NS tomorrow 05/15/25: Patient is able to drink and eat, discontinued IV fluids 3) Hyponatremia concern for overly rapid correction Na 120 on presentation; after aggressive fluids it aniya to ~131 (fluctuations reported). Repeat sodium levels 134 Plan: Place all IV hypotonic / isotonic fluids on HOLD for now Check serum sodium q4h until stable Patient received a dose of desmopressin 1 mcg SC Initiated free water (D5W) infusion Frequent neuro checks q1h while sodium is being actively managed 05/12/2025: Sodium levels: 134, 135, 135, 136 since yesterday Unable to assess mentation currently, as patient is receiving hypnotics Initiated D5 half NS had 150 cc/hour Frequent neuro checks q.1h if possible 05/13/2025: Sodium 138 today Continue D5 half NS at 150 cc/hour 05/14/2025: Sodium level stable at 138 today 05/15/2025: Sodium 135 today 05/16/25: Sodium 138 today 4) Possible toxic alcohol ingestion Friends report prior history of drinking alcohol swabs Plan: Poison Control was consulted; recommended monitoring for now Serum ethanol levels, UA toxicology ordered 05/12/2025: Serum ethanol levels: Less than 10 UA toxicology: Positive for opiates, cannabinoids, barbiturates 5) Possible UTI / sepsis POA UA positive; patient empirically started on ceftriaxone 1 g IV daily. Vitals and cultures pending Plan: Blood cultures x2 and urine culture; pending Initiated cefazolin 1 g q.8h Procalcitonin: 11.24; lactic acid within normal limits Probable source of infection: Open wounds of the left great toe/ UTI 05/12/2025: WBC count trended down to 11.2 from 17.4 and 14.6 Blood cultures and urine cultures negative until today Continue ceftriaxone 1 g IV daily today Repeat procalcitonin ordered 05/13/2025: WBC count normalized to 10.3 Blood culture and urine culture still negative Discontinue ceftriaxone today Repeat procalcitonin levels 2.13 6) Laceration of the left hallux extending to the bone, accompanied by surrounding cellulitis Deep laceration noted on exam; Concern for contamination and possible osteomyelitis if chronic. Plan Podiatry consulted STAT for exam, bedside irrigation/debridement vs OR washout. Foot x-ray ordered to rule out bony involvement Tetanus status; tetanus booster if indicated after patient is stable Change antibiotics to cefazolin, we will adjust antibiotics based on cultures tomorrow 05/12/2025: The american sign language interpreter has recommended an immediate MRI of the left foot, with or without contrast, to evaluate for any signs of early osteomyelitis and a potential rupture of the flexor hallucis longus (FHL). The X-ray of the left foot revealed: no indications of an acute fracture or dislocation. There are likely chronic sequelae from a previous trauma located inferiorly adjacent to the medial malleolus. Additionally, degenerative changes were noted in the fifth distal interphalangeal joint, along with moderate diffuse soft tissue swelling of the first digit. A laceration of the left hallux extends to the bone, accompanied by surrounding cellulitis. Due to the lack of precise historical information regarding the injury timeline and the presence of a laceration extending to the bone with surrounding cellulitis, the patient is expected to benefit from surgical intervention. This may include irrigation and debridement of the left hallux, with potential closure, a possible bone biopsy, a possible repair of the FHL, and the possibility of a staged procedure. The patient is to remain NPO after midnight. However, the patient was unable to undergo the MRI as he is currently restrained and is not a suitable candidate at this time. A discussion was held regarding the decision to not proceed with the MRI scan, and the american sign language interpreter has recommended moving forward with surgery tomorrow morning without the MRI for the time being. Due to unknown acute 8 history, timeline and extension to the underlying bone; initiated empiric antibiotics for now; transitioned cefazolin to ceftriaxone 1 g IV daily and vancomycin pharmacy to dose for now We shall deescalate antibiotics based on procedure tomorrow 05/13/2025: Patient underwent Left plantar hallux laceration irrigation and debridement, debridement of FHL tendon, bone biopsy, laceration repair Bone biopsy along with wound cultures were obtained during the surgery for antibiotic direction Websphere Architect recommended 1 week of oral antibiotics on discharge Bone quality was good and tendon was partially tone with no major pathologies We will deescalate antibiotics currently to cefazolin from ceftriaxone and vancomycin (no evidence of purulence during the suegery) 05/14/2025: Transition back to cefazolin 1 g IV b.i.d. Patient will be discharged on oral antibiotics on discharge; as per podiatric 05/15/2025: Continue IV cefazolin 1 g b.i.d. 05/16/25: Continue IV cefazolin 1 g 7) Alcoholic hepatitis / hepatic dysfunction Transaminemia Elevated LFTs reported; alcoholic hepatitis possible Plan LFTs on admission: AST: 1416 trended down to 928; ALT: [address] scan showed: No evidence of acute intrathoracic or intra- abdominal/pelvic injury Avoid hepatotoxic meds; adjust doses as needed 05/12/2025: Sudden rise in LFTs: AST 2464, ALT 1054 Possible acute causes include: Extensive use of haloperidol over the past 24 hours; hence held haloperidol for now Awaiting hepatitis panel Patient had no evidence of any hypotensive episodes over the past 24 hours,hence likely not ischemic hepatopathy/ hepatitis Initiated maintenance fluids: D5 half NS at 150 cc/hour today Repeat ammonia levels ordered Ultrasound abdomen ordered 05/13/2025: LFTs trended down to: AST 958 and ALT 745 Hepatitis panel negative Repeat ammonia levels normal Ultrasound abdomen showed hepatic steatosis 05/14/2025: LFTs trended down to AST 288 and ALT, 492; continue monitoring 05/15/25: LFTs trended down to AST 153 and ALT 379, continue monitoring 05/16/25: LFTs downtrended to AST 77 and ALT to 55, continue monitoring 8. Acute kidney injury, prerenal (vasomotor nephropathy): Resolved 9. Hypokalemia: Potassium levels 3.3 today, continue monitoring CMP, replacement per protocol 05/16/25: Potassium level 2.8 today, replacement per protocol Patient started oral diet Continue monitoring electrolytes DVT prophylaxis: SCDs in place GI prophylaxis: pantoprazole 40 mg IV daily Sitter/restraints: Can DC sitter based on condition tomorrow Swallow test done, ST recommends patient diet with puree diet textures and thin liquids Continue telemetry & frequent neuro checks. Resident MD attestation: The patient note has been reviewed and supervised by senior residents PGY-3 Dr Faust Patient was seen, examined and discussed with attending physician Dr Juanjo Cruz MD Internal Medicine resident, PGY-1 Date of Service: May 16, 2025 Billing Provider: TEMO MACARIO MD Common Visit Codes: [id number] INP/OBS CARE(HIGH) AMANDA CRUZ, RES May 16, 2025 20:31 LINDA FAUST, RES May 16, 2025 23:33 TMEO MACARIO MD May 17, 2025 07:28
[2025-05-16] MEDS: HYDROcodone/acetaminophen 5mg/325mg tablet PO PRN (22:07)
[2025-05-17 02:00] VITALS: BP 144/76; PULSE 84; RESP 20; TEMP 98; O2SAT 93
[2025-05-17 06:00] VITALS: BP 112/57; PULSE 73; RESP 10; TEMP 97.2; O2SAT 96
[2025-05-17 11:00] VITALS: BP 138/71; PULSE 67; RESP 21; TEMP 97.3; O2SAT 94
[2025-05-17] MEDS ORDERED: HYDROmorphone inj. 0.5 MG/0.5 ML DISP.SYRIN IV PRN (14:10)
[2025-05-17 15:00] VITALS: BP 120/62; PULSE 65; RESP 13; TEMP 98.2; O2SAT 96
--- NOTE | 2025-05-17 15:19 | PROGRESS NOTE- Residence ---
Progress Note - Resident Providers to CC Resident Creating Document: PARVEEN FLOWERS, GAB ~ Antibiotic Timeout Antibiotic Ordered?: Yes Subjective The patient was assessed and examined at the bedside, appears less agitated and aggressive today. He has started oral intake and is tolerating well. Patient has not voided overnight in his bladder scan showed a residual volume of 1300 mL, hence advised him straight cath for now. His disorientation and combative behaviors are fluctuating. Pending labs for today. Objective Vital Signs Date Time Temp Pulse Resp B/P (MAP) Pulse Ox O2 Delivery O2 Flow Rate FiO2 05/17/25 12:51 16 05/17/25 11:00 97.3 67 138/71 (93) 94 Room Air 05/16/25 07:55 2.0 Result Diagram: 05/16/25 0641 05/17/25 0556 Appears mildly disoriented but patient has a improved since the initial day HEENT: Atraumatic, normocephalic, EOMI, anicteric sclera ; pink conjunctiva Neck: Trachea midline. Supple, full range of motion, no JVD Cardiac: Regular rhythm, regular rate with no murmurs all over the precordium. Respiratory: Improved breath sounds bilaterally, tachypnea, no wheezing ,rub or rales, Chest wall is symmetric and with multiple do a. Gastrointestinal: Abdomen symmetric, non-distended, soft, normal bowel sounds x4 quadrant, normoactive, no hepatosplenomegaly Musculoskeletal: Left lower extremity: Dressing in place Several bruit all over the body with significant discoloration Neurological: No FND is, entire LOCAL OPERATOR examination could not be performed Skin: Warm and dry Coagulation Studies Laboratory Tests Test 05/10/25 20:47 05/16/25 06:41 Activated Partial Thromboplast Time 25 SECONDS (22-32) Prothrombin Time 10.0 SECONDS (9.0-12.0) INR International Normalized Ratio 1.0 INR Coagulation Comments Advance Care Planning Advanced Care plannin - 30 Minutes Plan Plan 1) Severe Alcohol Withdrawal high risk for delirium tremens / seizures Binge alcohol use Altered, severely agitated; already given phenobarbital and PRN lorazepam. Restraints and sitter in place. Plan: Head CT No intracranial abnormality identified. Continue CIWA monitoring q12h and prn; restraints per policy. Continue symptom triggered benzodiazepine strategy (lorazepam 2 mg IV q2h PRN per CIWA). Continue haloperidol 5 mg q.2h; Geodon on 10 mg q.6 H; monitor QTC prolongation Phenobarbital: ER dose given We will consult ICU for probable need of intubation if progressively somnolent, loss of airway reflexes, or respiratory depression from sedatives Thiamine 100 mg IV STAT then 100 mg IV daily x 3. Folic acid 1 mg IV daily Follow up with the echocardiogram 05/12/2025: Patient had a sudden rise in liver enzymes, hence held haloperidol 5 mg q.2h Recommended to continue Geodon 10 mg q.6 H; patient was combative and agitated until 3:00 a.m this day. He has been calm all through today, hence recommended to continue Geodon q.6 H and Ativan 2 mg IV p.r.n. We will consider consulting Dr. Thompson, transport coordinator if there is any further decline or increased combativeness over time There are high chances he might end up requiring intubation/ phenobarbital along with transferred to ICU Follow up with the echocardiogram, pending Continue thiamine, folic acid as above 05/13/2025: Patient received phenobarbital overnight due to severe agitation Continue Geodon 10 mg q.6 H and phenobarbital 60 mg prn daily Echocardiogram showed normal EF with no valvular abnormalities 05/14/2025: Patient appears to be little alert and oriented today Started oral feeds, advance diet as tolerated Continue Geodon 10 mg q.6 H and lorazepam/Valium as needed 05/15/2025: He was agitated today in the morning at around 4:00 a.m. and was biting on restraints. He was given Geodon and Valium, and 1 dose of haloperidol. Patient appears to be little alert and oriented today at 11:00 a.m. Ordered IV Dilaudid 0.5 mg q.4h for his pain. Continue alcohol withdrawal protocol Continue Valium 10 mg q.2h if NE>100 and BP> 140/80 Continue Geodon p.r.n. for agitation Recheck vitals q.2h Advance diet as tolerated, discontinued IV fluids Monitor behavioral status 05/16/2025: He was aggressive in the morning and received Valium 3 times, Geodon once at 2 am and haloperidol once at 4 am His blood pressure has been fluctuating, pulse rate is normal Continue alcohol withdrawal protocol and pain medication Monitor behavioral status 05/17/2025: Patient has been less agitated and aggressive of the past 24 hours He received a dose of p.o. Ativan and IM haloperidol once overnight Patient is currently on single soft restrains with a sitter Blood pressures have been stable, continue clonidine as needed 2) Rhabdomyolysis (CPK 23,704 on admission and downtrending) Severe rhabdo from prolonged intoxication/immobility; CPK improving but still very high. Risk for SUSIE, electrolyte derangements. Plan Resume isotonic IV fluids (0.9% NS) once sodium is stable Check CK q12h until falling and <5,000 Check urine output hourly; mona for accurate UOP Monitor for hyperkalemia, hypocalcemia, hyperphosphatemia Currently there is no need for urine alkalinization (bicarb) as his SUSIE is resolving 05/12/2025[place] [address] today, recently repeat CPK tomorrow in a.m. Electrolyte levels: Stable Initiated D5 half NS at 150 cc/hour today 05/13/2025: CPK 7077 Continue D5 NS at 150. cc/hour 05/14/2025: Repeat CPK 4549 Patient is started on oral feeds today Based on oral intake, can discontinue D5 half NS tomorrow 05/15/25: Patient is able to drink and eat, discontinued IV fluids 3) Hyponatremia concern for overly rapid correction Na 120 on presentation; after aggressive fluids it aniya to ~131 (fluctuations reported). Repeat sodium levels 134 Plan: Place all IV hypotonic / isotonic fluids on HOLD for now Check serum sodium q4h until stable Patient received a dose of desmopressin 1 mcg SC Initiated free water (D5W) infusion Frequent neuro checks q1h while sodium is being actively managed 05/12/2025: Sodium levels: 134, 135, 135, 136 since yesterday Unable to assess mentation currently, as patient is receiving hypnotics Initiated D5 half NS had 150 cc/hour Frequent neuro checks q.1h if possible 05/13/2025: Sodium 138 today Continue D5 half NS at 150 cc/hour 05/14/2025: Sodium level stable at 138 today 05/15/2025: Sodium 135 today 05/16/25: Sodium 138 today 4) Possible toxic alcohol ingestion Friends report prior history of drinking alcohol swabs Plan: Poison Control was consulted; recommended monitoring for now Serum ethanol levels, UA toxicology ordered 05/12/2025: Serum ethanol levels: Less than 10 UA toxicology: Positive for opiates, cannabinoids, barbiturates 5) Possible UTI / sepsis POA UA positive; patient empirically started on ceftriaxone 1 g IV daily. Vitals and cultures pending Plan: Blood cultures x2 and urine culture; pending Initiated cefazolin 1 g q.8h Procalcitonin: 11.24; lactic acid within normal limits Probable source of infection: Open wounds of the left great toe/ UTI 05/12/2025: WBC count trended down to 11.2 from 17.4 and 14.6 Blood cultures and urine cultures negative until today Continue ceftriaxone 1 g IV daily today Repeat procalcitonin ordered 05/13/2025: WBC count normalized to 10.3 Blood culture and urine culture still negative Discontinue ceftriaxone today Repeat procalcitonin levels 2.13 6) Laceration of the left hallux extending to the bone, accompanied by surrounding cellulitis Deep laceration noted on exam; Concern for contamination and possible osteomyelitis if chronic. Plan Podiatry consulted STAT for exam, bedside irrigation/debridement vs OR washout. Foot x-ray ordered to rule out bony involvement Tetanus status; tetanus booster if indicated after patient is stable Change antibiotics to cefazolin, we will adjust antibiotics based on cultures tomorrow 05/12/2025: The global climate change researcher has recommended an immediate MRI of the left foot, with or without contrast, to evaluate for any signs of early osteomyelitis and a potential rupture of the flexor hallucis longus (FHL). The X-ray of the left foot revealed: no indications of an acute fracture or dislocation. There are likely chronic sequelae from a previous trauma located inferiorly adjacent to the medial malleolus. Additionally, degenerative changes were noted in the fifth distal interphalangeal joint, along with moderate diffuse soft tissue swelling of the first digit. A laceration of the left hallux extends to the bone, accompanied by surrounding cellulitis. Due to the lack of precise historical information regarding the injury timeline and the presence of a laceration extending to the bone with surrounding cellulitis, the patient is expected to benefit from surgical intervention. This may include irrigation and debridement of the left hallux, with potential closure, a possible bone biopsy, a possible repair of the FHL, and the possibility of a staged procedure. The patient is to remain NPO after midnight. However, the patient was unable to undergo the MRI as he is currently restrained and is not a suitable candidate at this time. A discussion was held regarding the decision to not proceed with the MRI scan, and the global climate change researcher has recommended moving forward with surgery tomorrow morning without the MRI for the time being. Due to unknown acute 8 history, timeline and extension to the underlying bone; initiated empiric antibiotics for now; transitioned cefazolin to ceftriaxone 1 g IV daily and vancomycin pharmacy to dose for now We shall deescalate antibiotics based on procedure tomorrow 05/13/2025: Patient underwent Left plantar hallux laceration irrigation and debridement, debridement of FHL tendon, bone biopsy, laceration repair Bone biopsy along with wound cultures were obtained during the surgery for antibiotic direction Soap Worker recommended 1 week of oral antibiotics on discharge Bone quality was good and tendon was partially tone with no major pathologies We will deescalate antibiotics currently to cefazolin from ceftriaxone and vancomycin (no evidence of purulence during the suegery) 05/14/2025: Transition back to cefazolin 1 g IV b.i.d. Patient will be discharged on oral antibiotics on discharge; as per podiatric 05/15/2025: Continue IV cefazolin 1 g b.i.d. 05/16/25: Continue IV cefazolin 1 g 05/17/2025: Initiated oral Keflex 250 mg q.8h from today 7) Alcoholic hepatitis / hepatic dysfunction Transaminemia Elevated LFTs reported; alcoholic hepatitis possible Plan LFTs on admission: AST: 1416 trended down to 928; ALT: [address] scan showed: No evidence of acute intrathoracic or intra- abdominal/pelvic injury Avoid hepatotoxic meds; adjust doses as needed 05/12/2025: Sudden rise in LFTs: AST 2464, ALT 1054 Possible acute causes include: Extensive use of haloperidol over the past 24 hours; hence held haloperidol for now Awaiting hepatitis panel Patient had no evidence of any hypotensive episodes over the past 24 hours,hence likely not ischemic hepatopathy/ hepatitis Initiated maintenance fluids: D5 half NS at 150 cc/hour today Repeat ammonia levels ordered Ultrasound abdomen ordered 05/13/2025: LFTs trended down to: AST 958 and ALT 745 Hepatitis panel negative Repeat ammonia levels normal Ultrasound abdomen showed hepatic steatosis 05/14/2025: LFTs trended down to AST 288 and ALT, 492; continue monitoring 05/15/25: LFTs trended down to AST 153 and ALT 379, continue monitoring 05/16/25: LFTs downtrended to AST 77 and ALT to 55, continue monitoring 8. Acute kidney injury, prerenal (vasomotor nephropathy): Resolved 9. Hypokalemia: Potassium levels 3.3 today, continue monitoring CMP, replacement per protocol 05/16/25: Potassium level 2.8 today, replacement per protocol Patient started oral diet Continue monitoring electrolytes DVT prophylaxis: SCDs in place GI prophylaxis: pantoprazole 40 mg IV daily Sitter/restraints: Can DC sitter based on condition tomorrow Swallow test done, ST recommends patient diet with puree diet textures and thin liquids Continue telemetry & frequent neuro checks. Parveen Flowers MD Internal Medicine Resident, PGY-2 Date of Service: May 17, 2025 Billing Provider: TEMO MACARIO MD Common Visit Codes: [id number] INP/OBS CARE(HIGH) PARVEEN LFOWERS, RES May 17, 2025 15:19 TEMO MACARIO MD May 18, 2025 06:27
[2025-05-17 16:12] LABS: MEAN PLATELET VOLUME 7.4 FL (7.4-10.4); RED CELL DISTRIBUTION WIDTH 13.9 % (11.5-14.5)
[2025-05-17 16:33] LABS: CREATININE 0.96 MG/DL (0.60-1.10); TOTAL CARBON DIOXIDE 28.3 MMOL/L (24-32); eCRCL 87 ML/MIN; eGFR 81 ML/MIN
[2025-05-18 02:00] VITALS: BP 118/69; PULSE 67; RESP 18; TEMP 98.9; O2SAT 96
[2025-05-18] MEDS: LidoCAINE 2% Topical Jelly 11mL syringe (UROJET) TOP ONE (05:28)
[2025-05-18 06:00] VITALS: BP 114/68; PULSE 68; RESP 10; TEMP 98.6; O2SAT 96
[2025-05-18 06:36] LABS: MEAN PLATELET VOLUME 7.1 FL (7.4-10.4); RED CELL DISTRIBUTION WIDTH 13.5 % (11.5-14.5)
[2025-05-18 07:44] LABS: CREATININE 1.01 MG/DL (0.60-1.10); TOTAL CARBON DIOXIDE 28.7 MMOL/L (24-32); eCRCL 83 ML/MIN; eGFR 77 ML/MIN
[2025-05-18] MEDS: amox tr/potassium clavulanate 875/125mg TAB PO SCH (10:04)
[2025-05-18 10:29] LABS: BANDS% (MANUAL) 1.0 % (0-10); EOSINOPHILS % (MANUAL) 3.0 % (0-6); LYMPHOCYTES % (MANUAL) 29.0 % (21-51); METAMYLEOCYTES% (MANUAL) 2.0 % (0-0); MONOCYTES % (MANUAL) 16.0 % (2-12); NEUTROPHILS % (MANUAL) 49.0 % (42-75); PLATELET ESTIMATE NORMAL
[2025-05-18 11:00] VITALS: BP 103/48; PULSE 73; RESP 17; TEMP 97.2; O2SAT 97
--- NOTE | 2025-05-18 11:14 | RADIOLOGY REPORT ---
CLINICAL INDICATION: pain RT. SHOULDER TECHNIQUE: 2 radiographic views of the right shoulder were obtained. Comparison: None FINDINGS/IMPRESSION: There is no evidence of acute fracture or dislocation. The visualized joint space is well maintained. The alignment is anatomical. There is no radiopaque foreign body.
[2025-05-18] MEDS ORDERED: HYDR-3965 PO (11:44)
[2025-05-18] MEDS ORDERED: LORA-269 PO (11:44)
[2025-05-18] MEDS: lactose-reduced food (Ensure Enlive) - 237ml bottle PO SCH (12:30)
[2025-05-18] MEDS ORDERED: tamsulosin capsule PO (12:50)
[2025-05-18] MEDS ORDERED: MULT-25 PO (12:50)
[2025-05-18] MEDS ORDERED: PANT40TA54 PO (12:50)
[2025-05-18] MEDS ORDERED: thiamine tablet PO (12:50)
[2025-05-18] MEDS ORDERED: FOLI1TAB27 PO (12:50)
[2025-05-18] MEDS ORDERED: AMOX-580 PO (12:50)
[2025-05-18 15:00] VITALS: BP 163/81; PULSE 82; RESP 14; TEMP 97.7; O2SAT 95
[2025-05-18 15:10] VITALS: RESP 16
--- NOTE | 2025-05-18 18:02 | DISCHARGE SUMMARY-Residence ---
Discharge Summary Providers to Resident Creating Document: RG LUCAS, RES ~ Discharge Summary Admission Diagnosis: Laceration plantar left hallux, left foot cellulitis Hospital Course DATE OF ADMISSION: 05/11/2025 DATE OF DISCHARGE: 05/18/2025 Discharge Diagnosis\Comment: 1) Severe Alcohol Withdrawal high risk for delirium tremens / seizures Binge alcohol use 2) Rhabdomyolysis (CPK 23,704 on admission and downtrending) 3) Hyponatremia concern for overly rapid correction 4) Possible toxic alcohol ingestion 5) Possible UTI / sepsis POA 6) Laceration of the left hallux extending to the bone, accompanied by surrounding cellulitis 7) Alcoholic hepatitis / hepatic dysfunction Transaminemia 8. Acute kidney injury, prerenal (vasomotor nephropathy) 9. Hypokalemia Operations\Procedures: Left plantar hallux laceration irrigation and debridement, debridement of FHL tendon, bone biopsy, laceration repair Consultants: Podiatric surgeon Complications: None Condition on DC: Stable New Medications: Hydrocodone Bit/Acetaminophen 5/325 MG ([place] 5/325 MG) 5 Mg/325 Mg Tablet 1 TAB PO Q6H PRN for pain, #20 TAB Lorazepam (Ativan) 1 Mg Tablet 1 TAB PO Q8H for anxiety, #20 TAB 0 Refills Amox Tr/Potassium Clavulanate 875/125 MG (Augmentin 875/125 MG) 875 Mg-125 Mg Tablet 1 TAB PO BID@0830,1730 for 7 Days, #14 TAB Folic Acid* (Folic Acid*) Y Tab 1 MG PO DAILY for 30 Days, #30 TAB Multivitamin with Folic Acid (Thera Tablet) 400 Mcg Tablet 1 EACH PO Q24H for 30 Days, #30 TAB Pantoprazole Sodium (Pantoprazole Sodium) 40 Mg Tablet.dr 40 MG PO BKF for 30 Days, #30 TAB.SR [tamsulosin capsule] () 0.4 MG CAP 0.4 MG PO HS for 30 Days, #30 [thiamine tablet] () 100 MG TABLET 100 MG PO DAILY for 30 Days, #30 Continued Medications: Atorvastatin Calcium (Atorvastatin Calcium) 10 Mg Tablet 1 TAB PO DAILY Clonidine HCl (Clonidine HCl) 0.3 Mg Tablet 1 TAB PO HS Lisinopril/Hydrochlorothiazide (Lisinopril-Hctz 20-25 mg Tab) 1 Each Tablet 1 TAB PO DAILY Loratadine (Loratadine) 10 Mg Tablet 1 TAB PO DAILY Methocarbamol (Methocarbamol) 500 Mg Tablet 1 TAB PO TID PRN for muscle spasms Methylphenidate Hcl (Methylphenidate Hcl) 36 Mg Tab.er.24 1 TAB PO QAM Discharge Summary: HPI as per admitting physician: 54-year-old male is transferred from [facility] for evaluation and further management of severe alcohol abuse and rhabdomyolysis. The patient is altered, confused and significantly agitated waking up to deep stimulation and is not able to provide history. The patient's friends (Rei Martell) are at the bedside and provided most of the patient's history. Per the patient's friends the patient was found unresponsive in his room early in the morning when they went to check on him. They reported that the patient was drinking very very heavily and cause on binge drinking episodes since the last 5-6 days and are not sure what triggered this binge drinking episode. They reported that the last saw the friend talking and being himself was the night prior to which he was found unresponsive and reported that he was intoxicated but was able to recognize his friends. Per the friend's the patient does not drink alcohol every day but has a episodes where he binge drinks and had to be taken to the hospital in the past. They also report that he has a history of drinking isopropyl alcohol in the past and are not sure if he also consumed isopropyl alcohol during this binge drinking episode. The patient was initially taken to [facility] where he was found to have a significantly elevated creatinine [place]okinase [place] the [address], hyponatremia with a sodium of 120 and significantly elevated LFTs. He was treated with aggressive fluid hydration and was transferred to our hospital for further care and management in view of is severe rhabdomyolysis and severe alcohol withdrawals. PCP- Dr. Joya [facility] course: The patient was admitted with severe alcohol withdrawal after binge alcohol use, presenting with marked agitation, confusion, and risk for delirium tremens and seizures. On arrival he required high doses of benzodiazepines, phenobarbital, antipsychotics, and continuous monitoring with restraints and a sitter for safety. Initial head CT was unremarkable. He was managed on a CIWA-driven protocol with lorazepam and diazepam, as well as Geodon and intermittent haloperidol for refractory agitation, while carefully monitoring for QTc prolongation and oversedation. Thiamine and folic acid supplementation were initiated. Given fluctuating sensorium and risk of airway compromise, ICU was consulted early for potential escalation, though the patient remained stable without requiring intubation. Over subsequent days his agitation improved, and he gradually became calmer and more oriented, tolerating weaning of sedatives. By 05/17, he was requiring only intermittent PRN medications and was maintained on soft restraints with a sitter. In parallel, he was found to have severe rhabdomyolysis (initial CPK >23,000) likely from prolonged intoxication and immobility. He was aggressively hydrated with isotonic fluids and monitored for electrolyte disturbances and acute kidney injury. His renal function remained stable, and CPK downtrended steadily, allowing IV fluids to be discontinued once he resumed adequate oral intake. He also presented with profound hyponatremia (Na 120), which aniya rapidly with initial fluid resuscitation. To avoid overcorrection, fluids were adjusted, desmopressin was given, and D5W was administered. Frequent neuro checks and serial sodium levels showed stabilization in the mid-130s over the course of admission without evidence of osmotic demyelination. The patient also had a deep laceration of the left hallux with surrounding cellulitis and concern for osteomyelitis. Podiatry was consulted urgently, and he underwent surgical irrigation, debridement, tendon repair, and bone biopsy on 05/13. Cultures were obtained, and empiric ceftriaxone and vancomycin were narrowed to cefazolin postoperatively. He was transitioned to oral Keflex by 05/17 per podiatrys recommendations for a one-week course. Wound healing was appropriate, and no surgical complications were noted. Additionally, he demonstrated a transient but marked rise in liver enzymes concerning for alcoholic hepatitis versus medication-induced liver injury, which downtrended after haloperidol was discontinued and hepatotoxic agents were avoided. Ultrasound confirmed hepatic steatosis. Electrolyte abnormalities including recurrent hypokalemia were corrected per protocol. By discharge, the patient was alert, oriented, tolerating oral diet, and ambulating with assistance. Renal function and electrolytes were stable, CPK had downtrended significantly, LFTs improved, and sodium normalized. His behavioral status improved considerably, and restraints were discontinued. He was cleared by podiatry with wound care instructions and oral antibiotics. He was medically stable for discharge and expressed motivation to pursue alcohol recovery. He was provided follow-up with [facility] for ongoing alcohol use disorder treatment and recovery support, along with close outpatient follow-up for wound care, liver function monitoring, and primary care. Imaging: Chest abdomen pelvis CT: No CT evidence of acute intrathoracic or intra- abdominal/pelvic injury identified at this time. Head CT: No intracranial abnormality identified. Foot x-ray: There is no evidence of acute fracture or dislocation.Probable Chronic sequelae of remote trauma inferiorly adjacent to the medial malleolus.Degenerative change of the 5th distal interphalangeal joint.Moderate diffuse soft tissue swelling of the 1st digit. Ultrasound abdomen: Diffuse hepatic steatosis. Echocardiogram: Overall LVEF is 65-70%. Normal LV size and function. Mild to moderate concentric hypertrophy. RV is normal size and function. Mild mitral annular calcification without stenosis. Trace regurgitation. The tricuspid valve is normal in structure with trace regurgitation. The pulmonary valve is normal in structure with physiologic insufficiency. Normal pericardium. No effusion. X-ray shoulder: There is no evidence of acute fracture or dislocation. The visualized joint space is well maintained. The alignment is anatomical. There is no radiopaque foreign body. Foot x-ray postprocedure: There is a fracture of the 1st proximal phalanx. Surrounding soft tissue edema. Physical examination today: Alert and oriented with no confusion today HEENT: Atraumatic, normocephalic, EOMI, anicteric sclera ; pink conjunctiva Neck: Trachea midline. Supple, full range of motion, no JVD Cardiac: Regular rhythm, regular rate with no murmurs all over the precordium. Respiratory: Improved breath sounds bilaterally, tachypnea, no wheezing ,rub or rales, Chest wall is symmetric and with multiple do a. Gastrointestinal: Abdomen symmetric, non-distended, soft, normal bowel sounds x4 quadrant, normoactive, no hepatosplenomegaly Musculoskeletal: Left lower extremity: Dressing in place Neurological: No FNDs, normal since examination, cranial nerves 2-12 intact Skin: Warm and dry Laboratory Tests Test 05/17/25 04:05 05/17/25 05:56 05/17/25 07:29 05/17/25 12:46 Glucometer 143 mg/dl 106 mg/dl 130 mg/dl Potassium Level 3.8 MMOL/L Magnesium Level 2.1 MG/DL Test 05/17/25 15:42 05/17/25 16:24 05/17/25 20:52 05/18/25 02:19 White Blood Count 8.8 X10'3 Red Blood Count 3.51 X10'6 Hemoglobin 11.0 g/dl Hematocrit 31.8 % Mean Corpuscular Volume 90.6 FL Mean Corpuscular Hemoglobin 31.4 PG Mean Corpuscular Hemoglobin Concent 34.7 g/dL Red Cell Distribution Width 13.9 % Platelet Count 326 X10'3 Mean Platelet Volume 7.4 FL Neutrophils (%) (Auto) 66.2 % Lymphocytes (%) (Auto) 16.2 % Monocytes (%) (Auto) 15.0 % Eosinophils (%) (Auto) 1.9 % Basophils (%) (Auto) 0.7 % Neutrophils # (Auto) 5.8 X10'3 Lymphocytes # (Auto) 1.4 X10'3 Monocytes # (Auto) 1.3 X10'3 Eosinophils # (Auto) 0.2 X10'3 Basophils # (Auto) 0.1 X10'3 CBC Comment Sodium Level 135 MMOL/L Potassium Level 4.0 MMOL/L Chloride Level 100 MMOL/L Carbon Dioxide Level 28.3 MMOL/L Anion Gap 7 Blood Urea Nitrogen 10 MG/DL Creatinine 0.96 MG/DL Estimated GFR/1.73 m2 81 ML/MIN BUN/Creatinine Ratio 10.4 Glucose Level 122 MG/DL Calcium Level 9.4 MG/DL Total Bilirubin 0.6 MG/DL Aspartate Amino Transf (AST/SGOT) 52 U/L Alanine Aminotransferase (ALT/SGPT) 171 U/L Alkaline Phosphatase 109 IU/L Total Protein 6.2 G/DL Albumin 3.1 G/DL Globulin 3.1 G/DL Albumin/Globulin Ratio 1.0 Chemistry Comments Glucometer 122 mg/dl 135 mg/dl 99 mg/dl Test 05/18/25 05:43 05/18/25 07:40 05/18/25 14:53 White Blood Count 8.1 X10'3 Red Blood Count 3.39 X10'6 Hemoglobin 10.7 g/dl Hematocrit 30.5 % Mean Corpuscular Volume 90.0 FL Mean Corpuscular Hemoglobin 31.7 PG Mean Corpuscular Hemoglobin Concent 35.2 g/dL Red Cell Distribution Width 13.5 % Platelet Count 341 X10'3 Mean Platelet Volume 7.1 FL Neutrophils (%) (Auto) 55.8 % Lymphocytes (%) (Auto) 24.6 % Monocytes (%) (Auto) 14.5 % Eosinophils (%) (Auto) 4.0 % Basophils (%) (Auto) 1.1 % Neutrophils # (Auto) 4.5 X10'3 Lymphocytes # (Auto) 2.0 X10'3 Monocytes # (Auto) 1.2 X10'3 Eosinophils # (Auto) 0.3 X10'3 Basophils # (Auto) 0.1 X10'3 CBC Comment Differential Total Cells Counted 100 Neutrophils % (Manual) 49.0 % Band Neutrophils % 1.0 % Lymphocytes % (Manual) 29.0 % Monocytes % (Manual) 16.0 % Eosinophils % (Manual) 3.0 % Metamyelocytes % 2.0 % Platelet Estimate Normal Red Blood Cell Morphology Normal Basophilic Stippling Sodium Level 132 MMOL/L Potassium Level 4.0 MMOL/L Chloride Level 98 MMOL/L Carbon Dioxide Level 28.7 MMOL/L Anion Gap 5 Blood Urea Nitrogen 12 MG/DL Creatinine 1.01 MG/DL Estimated GFR/1.73 m2 77 ML/MIN BUN/Creatinine Ratio 11.9 Glucose Level 121 MG/DL Calcium Level 9.0 MG/DL Magnesium Level 2.0 MG/DL Total Bilirubin 0.5 MG/DL Aspartate Amino Transf (AST/SGOT) 45 U/L Alanine Aminotransferase (ALT/SGPT) 141 U/L Alkaline Phosphatase 97 IU/L Total Protein 6.0 G/DL Albumin 2.8 G/DL Globulin 3.2 G/DL Albumin/Globulin Ratio 0.9 Chemistry Comments Glucometer 116 mg/dl 117 mg/dl Advise on discharge: - strictly no alcohol use - you have an appointment with [facility], please follow their recommendations - continue medications as prescribed - wound care regularly, left great toe - call 911/go to nearby ED if any emergencies - follow up at podiatry office in a week *Problems/Diagnosis: (1) Alcohol withdrawal delirium Status: Acute (2) Hyponatremia Status: Acute (3) Rhabdomyolysis Status: Acute (4) Altered mental status Status: Acute (5) Alcoholism Status: Acute (6) Sepsis Status: Acute (7) Transaminitis Status: Acute Total Time Spent on D/C: > 30 Minutes Date of Service: May 18, 2025 Billing Provider: TEMO MACARIO MD Common Visit Codes: 80050-CEK/OBS DISCH DAY >30min RG LUCAS, RES May 18, 2025 17:59 TEMO MACARIO MD May 18, 2025 20:48
== END 2025-05-18 14:50 | disposition home or self-care (01) | DRG 720 ==
LOC: ER 20:31 → ED HOLD 05-11 00:42 → PCU 3S 05-11 03:04
PROVIDERS: ADMIT Internal Medicine; ATTEND Internal Medicine
PROC: BW211ZZ Computerized Tomography (CT Scan) of Abdomen and Pelvis using Low Osmolar Contrast (ICD-10-PCS; 2025-05-10)
PROC: 0QBR0ZX Excision of Left Toe Phalanx, Open Approach, Diagnostic (ICD-10-PCS; principal; 2025-05-13 16:01)
PROC: 05HF33Z Insertion of Infusion Device into Left Cephalic Vein, Percutaneous Approach (ICD-10-PCS; 2025-05-14)
PROC: B54NZZA Ultrasonography of Left Upper Extremity Veins, Guidance (ICD-10-PCS; 2025-05-14)
DX: A41.9 Sepsis, unspecified organism (principal); N17.0 Acute kidney failure with tubular necrosis; F10.231 Alcohol dependence with withdrawal delirium; M62.82 Rhabdomyolysis; G93.41 Metabolic encephalopathy; E87.1 Hypo-osmolality and hyponatremia; N39.0 Urinary tract infection, site not specified; E87.6 Hypokalemia; K70.10 Alcoholic hepatitis without ascites; R74.01 Elevation of levels of liver transaminase levels; L03.116 Cellulitis of left lower limb; K76.89 Other specified diseases of liver; S91.119A Laceration without foreign body of unspecified toe without damage to nail, initial encounter; X58.XXXA Exposure to other specified factors, initial encounter; Y93.89 Activity, other specified; Y92.89 Other specified places as the place of occurrence of the external cause; Y99.8 Other external cause status; Z79.899 Other long term (current) drug therapy
CPT/HCPCS: 36410; 36415; 70450; 71260; 73020; 73620; 74177; 76700; 76937; 80048; 80053; 80202; 80305; 80320; 80329; 81001; 82140; 82150; 82550; 82693; 82948; 83036; 83605; 83690; 83735; 83880; 84100; 84132; 84145; 84484; 85007; 85025; 85610; 85651; 85730; 86140; 86709; 86803; 87040; 87070; 87075; 87081; 87088; 87340; 87522; 92508; 92616; 93005; 93306; 96365; 96366; 96367; 96375; 97116; 97161; 97530; 99291; 99292; A4314; A4338; A4615; A4618; A5200; A6209; A6213; A6222; A6253; A6258; A6260; A6266; A6446; A6449; A6455; A6590; A7000; C1751; C1758; G0378; J0360; J0690; J0696; J1171; J1630; J2060; J2250; J2270; J2470; J2560; J2597; J2704; J2997; J3010; J3360; J3373; J3374; J3411; J3480; J3486; J3490; J7040; J7042; J7070; J7120; Q9967